=== PATIENT | female | born 1970 ===

== ENCOUNTER 2020-05-22 15:18 | Outpatient (REF) | payer OTHER, SELFPAY | END 2020-05-22 15:19 | disposition home or self-care (01) | LOC: HO.LAB 15:18 | PROVIDERS: PCP Internal Medicine; Visit Provider Internal Medicine | DX: Z20.828 Contact with and (suspected) exposure to other viral communicable diseases (principal) | CPT/HCPCS: C9803; U0003 ==

== ENCOUNTER 2020-09-15 07:36 | Outpatient (REF) | payer OTHER, SELFPAY ==
[2020-09-15 09:30] LABS: Alanine Aminotransferase 22 U/L (0-31); Albumin Level 4.1 g/dL (3.5-5.0); Alkaline Phosphatase 116 U/L (39-117); Anion Gap 13 (12-20); Aspartate Amino Transferase 21 U/L (5-31); Bilirubin Total 0.8 mg/dL (0.0-1.0); Blood Urea Nitrogen 12 mg/dL (9-16); Carbon Dioxide 29 mmol/L (22-29); Chloride 105 mmol/L (96-108); Cholesterol 172 mg/dL; Estimated Glomerular Filt Rate > 60; Glucose Fasting 96 mg/dL (60-99); HDL Cholesterol 39 mg/dL; LDL Cholesterol Calculated 102 mg/dl; Potassium 4.4 mmol/L (3.3-5.1); Sodium 143 mmol/L (135-145); Total Protein 6.9 g/dL (6.5-8.0); Triglycerides 159 mg/dL
== END 2020-09-15 07:37 | disposition home or self-care (01) ==
LOC: HO.LAB 07:36
PROVIDERS: PCP Internal Medicine; Visit Provider Internal Medicine
DX: E78.00 Pure hypercholesterolemia, unspecified (principal)
CPT/HCPCS: 36415; 80053; 80061

== ENCOUNTER 2020-10-03 08:05 | Outpatient (REF) | payer OTHER, SELFPAY ==
[2020-10-06 01:26] LABS: HPV mRNA E6/E7 rflx Not Detected (Not Detected)
== END 2020-10-03 08:06 | disposition home or self-care (01) ==
LOC: HO.LAB 08:05
PROVIDERS: PCP Internal Medicine; Visit Provider Obstetrics & Gynecology
DX: Z01.419 Encounter for gynecological examination (general) (routine) without abnormal findings (principal); Z11.51 Encounter for screening for human papillomavirus (HPV); N83.209 Unspecified ovarian cyst, unspecified side
CPT/HCPCS: 36415; 87624; 88142

== ENCOUNTER 2020-10-05 11:27 | Outpatient (REF) | payer OTHER, SELFPAY ==
--- NOTE | ~2020-10-05 | US_ITS ---
EXAMINATION: ULTRASOUND OF THE PELVIS CLINICAL INFORMATION: Ovarian cyst. COMPARISON: None. TECHNIQUE: Transabdominal and transvaginal pelvic ultrasound. A transvaginal study was performed in addition to the transabdominal study which did not yield an adequate examination of the uterus and ovaries due to superimposed distended gas-filled loops of bowel. FINDINGS: The uterus is normal in size and appearance, measuring 5.2 x 2.9 x 4.4 cm longitudinally, anteroposteriorly and transversely. The endometrial stripe thickness is normal, measuring 0.5 cm in thickness. There is a single uterine fibroid noted at the posterior uterine body myometrium. This is somewhat hypoechoic measuring 0.8 x 0.5 x 0.8 cm, without significant change from prior. The ovaries bilaterally are visualized and appear normal, with the right ovary measuring 1.7 x 1.2 x 1.3 cm and the left ovary measuring 1.6 x 1.1 x 1.3 cm. There are normal arterial and venous spectral waveforms bilaterally. No adnexal mass or free fluid collection seen. US/US pelvic and transvaginal IMPRESSION: Small uterine body fibroid. Otherwise unremarkable pelvic ultrasound..
== END 2020-10-05 11:28 | disposition home or self-care (01) ==
LOC: HO.US 11:27
PROVIDERS: PCP Internal Medicine; Visit Provider Internal Medicine
DX: N83.209 Unspecified ovarian cyst, unspecified side (principal)
CPT/HCPCS: 76830; 76856

== ENCOUNTER → 2020-10-16 12:40 | Outpatient (BNVA) | payer OTHER, SELFPAY | PROVIDERS: PCP Internal Medicine; Visit Provider Obstetrics & Gynecology ==

== ENCOUNTER 2021-06-14 16:13 | Outpatient (REF) | payer OTHER, SELFPAY ==
--- NOTE | ~2021-06-14 | MM_ITS ---
EXAMINATION: MM BREAST SCREENING DIGITAL BREAST TOMOSYNTHESIS, BILATERAL CLINICAL INFORMATION: Screening. Asymptomatic. The lifetime risk of breast cancer based on the Tyrer-Cuzick Model is 18.2%. COMPARISON: Mammography: and studies dating back to 08/07/2013 TECHNIQUE: Digital breast tomosynthesis is performed in both the craniocaudal and mediolateral oblique views along with computer-aided detection (CAD). Synthesized 2D images are generated from the tomosynthesis. FINDINGS: The breasts are heterogeneously dense, which may obscure small masses (ACR BI-RADS breast composition Category c). There is a stable parenchymal pattern within the left breast with no new abnormal dominant mass or suspicious grouping of microcalcifications. About the upper outer aspect of the right breast, there is a circumscribed density measuring approximately 6 x 3 mm in size with increasing number of calcifications present. This may represent a calcifying fibroadenoma. Spot magnification films are recommended in craniocaudal and 90 degree mediolateral views for better evaluation. MM/MM tomosynthesis screening BI IMPRESSION: Right breast density with calcifications for further evaluation with spot magnification views, right breast, in craniocaudal and 90 degree mediolateral views. ASSESSMENT: BI-RADS 0: Incomplete - Need Additional Imaging Evaluation RECOMMENDATION: 1. Additional views of the right breast 2. Targeted ultrasound if warranted after review of the additional views. 3. Radiology department staff will contact the patient for additional imaging.
== END 2021-06-14 16:14 | disposition home or self-care (01) ==
LOC: HO.MAMMO 16:13
PROVIDERS: Visit Provider Internal Medicine
DX: Z12.31 Encounter for screening mammogram for malignant neoplasm of breast (principal)
CPT/HCPCS: 77063; 77067

== ENCOUNTER 2021-06-28 08:38 | Outpatient (REF) | payer OTHER, SELFPAY ==
--- NOTE | ~2021-06-28 | US_ITS ---
EXAMINATION: US DIAGNOSTIC ULTRASOUND BREAST, RIGHT CLINICAL INFORMATION: Density with calcifications upper outer aspect of the right breast. COMPARISON: Mammography of same day and studies dating back to August 13, 2014. TECHNIQUE: Ultrasound of the breast is performed with real-time duarte scale imaging and color Doppler. FINDINGS: Targeted ultrasound of the right breast did not demonstrate any abnormal cystic or solid masses. No region of abnormal distal sound shadowing is appreciated. Results are discussed with the patient at time of visit. US/US breast RT limited IMPRESSION: Probable benign groupings of calcifications as described for which six-month follow-up right breast mammogram is suggested. ASSESSMENT: BI-RADS 3: Probably Benign RECOMMENDATION: Diagnostic mammography in 6 months.
--- NOTE | ~2021-06-28 | MM_ITS ---
EXAMINATION: MM DIAGNOSTIC DIGITAL BREAST TOMOSYNTHESIS, RIGHT US RIGHT BREAST TARGETED CLINICAL INFORMATION: Density with calcifications. COMPARISON: Mammography: 06/14/2021 and studies dating back to 06/16/2010 TECHNIQUE: Digital breast tomosynthesis is performed. 2D images are generated from the tomosynthesis. The following views are obtained: Spot magnification views of the right breast in craniocaudal and 90 degree mediolateral views. FINDINGS: The breasts are heterogeneously dense, which may obscure small masses (ACR BI-RADS breast composition Category c). Magnification views of the right breast demonstrate the original grouping of calcifications with circumscribed density to have a benign appearance similar to previous studies and likely representing a calcifying fibroadenoma. Posterior to this in the superior aspect of the right breast there is a second faint grouping of calcifications approximately 11 cm from the nipple for which 6 month follow-up magnification views are recommended. Looking back on the prior study of 06/14/2021, there is also question of another grouping of calcifications just inferior to the other grouping approximately 11 cm from the nipple; however, these may be artifactual in nature. Targeted ultrasound of the right breast did not demonstrate any abnormal cystic or solid masses. No region of abnormal distal sound shadowing is appreciated. Results are discussed with the patient at time of visit. MM/MM tomosynthesis added views R IMPRESSION: Probable benign groupings of calcifications as described for which six-month follow-up right breast mammogram is suggested. ASSESSMENT: BI-RADS 3: Probably Benign RECOMMENDATION: Diagnostic mammography in 6 months. This patient's information was entered into a reminder system with a target due date for their next mammogram.
== END 2021-06-28 08:39 | disposition home or self-care (01) ==
LOC: HO.MAMMO 08:38
PROVIDERS: Visit Provider Internal Medicine
DX: R92.2 Inconclusive mammogram (principal); R92.8 Other abnormal and inconclusive findings on diagnostic imaging of breast
CPT/HCPCS: 76642; 77061; 77065

== ENCOUNTER 2021-10-11 07:56 | Outpatient (REF) | payer OTHER, SELFPAY ==
[2021-10-11 09:39] LABS: Alanine Aminotransferase 22 U/L (0-31); Albumin Level 4.2 g/dL (3.5-5.0); Alkaline Phosphatase 113 U/L (39-117); Anion Gap 13 (12-20); Aspartate Amino Transferase 21 U/L (5-31); Blood Urea Nitrogen 10 mg/dL (9-16); Calcium 9.6 mg/dL (8.4-10.2); Carbon Dioxide 28 mmol/L (22-29); Chloride 104 mmol/L (96-108); Cholesterol 144 mg/dL; Estimated Glomerular Filt Rate > 60; Glucose Fasting 95 mg/dL (60-99); HDL Cholesterol 35 mg/dL; LDL Cholesterol Calculated 83 mg/dl; Potassium 4.5 mmol/L (3.3-5.1); Sodium 140 mmol/L (135-145); Total Protein 7.1 g/dL (6.5-8.0); Triglycerides 133 mg/dL
[2021-10-16 14:11] LABS: Vitamin D 25-OH, D2 <4 ng/mL; Vitamin D 25-OH, D3 17 ng/mL; Vitamin D 25-OH, Total 17 ng/mL (30-100)
== END 2021-10-11 07:57 | disposition home or self-care (01) ==
LOC: HO.LAB 07:56
PROVIDERS: PCP Internal Medicine; Visit Provider Internal Medicine
DX: Z00.00 Encounter for general adult medical examination without abnormal findings (principal); E78.5 Hyperlipidemia, unspecified; E55.9 Vitamin D deficiency, unspecified
CPT/HCPCS: 36415; 80053; 80061; 82306

== ENCOUNTER → 2021-12-05 07:54 | Outpatient (BNVA) | payer OTHER, SELFPAY | PROVIDERS: Visit Provider Obstetrics & Gynecology | DX: Z13.89 Encounter for screening for other disorder (principal) ==

== ENCOUNTER 2021-12-27 12:08 | Outpatient (REF) | payer OTHER, SELFPAY ==
--- NOTE | ~2021-12-27 | MM_ITS ---
EXAMINATION: MM DIAGNOSTIC DIGITAL BREAST TOMOSYNTHESIS, RIGHT CLINICAL INFORMATION: Short interval six-month follow-up probable benign calcifications mid and posterior upper outer right breast. Family history breast cancer, mother and 2 aunts. The lifetime risk of breast cancer based on the Tyrer-Cuzick Model is 19%. COMPARISON: Mammography: 06/28/2021, 06/14/2021 (BI-RADS 0) 03/02/2020, 09/22/2018 TECHNIQUE: Digital breast tomosynthesis is performed in both the craniocaudal and mediolateral oblique views along with computer-aided detection (CAD). Synthesized 2D images are generated from the tomosynthesis. Additional magnification right CC and magnification right ML views are obtained. FINDINGS: The breasts are heterogeneously dense, which may obscure small masses (ACR BI-RADS breast composition Category c). Findings fibronodular parenchymal pattern is similar to prior exams. There is no interval mass or architectural abnormality or developing density. Coarse tightly grouped calcifications mid upper outer right breast show no significant change. There are likely related to degenerating fibroadenoma. There are a few scattered punctate calcifications slightly more posteriorly which are also without significant change. Right breast will be reassessed again at time of annual bilateral diagnostic mammography, due in 6 months. Results are provided to the patient at time of visit by the technologist. MM/MM tomosynthesis diagnostic RT IMPRESSION: Probable benign calcifications right breast upper outer quadrant without significant change. ASSESSMENT: BI-RADS 3: Probably Benign RECOMMENDATION: Magnification views right breast at time of annual bilateral diagnostic mammography, due in 6 months. This patient's information was entered into a reminder system with a target due date for their next mammogram.
== END 2021-12-27 12:09 | disposition home or self-care (01) ==
LOC: HO.MAMMO 12:08
PROVIDERS: Visit Provider Internal Medicine
DX: R92.1 Mammographic calcification found on diagnostic imaging of breast (principal)
CPT/HCPCS: 77061; 77065

== ENCOUNTER 2022-07-02 14:20 | Outpatient (REF) | payer OTHER, SELFPAY ==
--- NOTE | ~2022-07-02 | MM_ITS ---
EXAMINATION: MM DIAGNOSTIC DIGITAL BREAST TOMOSYNTHESIS, BILATERAL CLINICAL INFORMATION: Six-month follow-up right breast calcifications. Yearly left breast study. The lifetime risk of breast cancer based on the Tyrer-Cuzick Model is 16.8%. COMPARISON: Mammography: 12/27/2021 and studies dating back to 08/13/2014. TECHNIQUE: Digital breast tomosynthesis is performed in both the craniocaudal and mediolateral oblique views along with computer-aided detection (CAD). Synthesized 2D images are generated from the tomosynthesis. Additional spot magnification views of the right breast in craniocaudal and 90 degree mediolateral views performed. FINDINGS: The breasts are extremely dense, which lowers the sensitivity of mammography (ACR BI-RADS breast composition Category d). There is essentially stability of grouping of calcifications about the upper outer aspect of the right breast. A second grouping of a few calcifications appear similar in the upper outer aspect deeper within the right breast. No new abnormal dominant mass or new more suspicious grouping of calcifications is identified. One-year follow-up study is recommended. Results are provided to the patient at time of visit by the technologist. MM/MM tomosynthesis diagnostic BI IMPRESSION: There are no significant changes from prior study. Recommend 1 year follow-up diagnostic study to include magnification views of the right breast. ASSESSMENT: BI-RADS 3: Probably Benign. RECOMMENDATION: Diagnostic mammography at time of next annual exam, due in 12 months. This patient's information was entered into a reminder system with a target due date for their next mammogram.
== END 2022-07-02 14:21 | disposition home or self-care (01) ==
LOC: HO.MAMMO 14:20
PROVIDERS: PCP Internal Medicine; Visit Provider Internal Medicine
DX: R92.1 Mammographic calcification found on diagnostic imaging of breast (principal)
CPT/HCPCS: 77062; 77066

== ENCOUNTER 2022-08-20 13:19 | Outpatient (REF) | payer OTHER, SELFPAY ==
--- NOTE | ~2022-08-20 | US_ITS ---
EXAMINATION: US DIAGNOSTIC ULTRASOUND BREAST (AXILLA), RIGHT CLINICAL INFORMATION: Small palpable finding noted by patient within past few weeks mid right axilla. No erythema or discharge. COMPARISON: Mammography 07/02/2022. TECHNIQUE: Ultrasound is targeted to the area of clinical concern right axilla using grayscale imaging and color Doppler without and with harmonics. Patient is able to point to the area of concern at time of imaging. FINDINGS: There is no focal suspicious finding. There is no cystic or solid mass or architectural abnormality. No lymphadenopathy. No skin thickening or edema tracking in soft tissue planes. Normal compressibility right axillary vein. Results are discussed with the patient at time of visit. US/US breast RT limited IMPRESSION: -Normal study. ASSESSMENT: BI-RADS 1: Negative RECOMMENDATION: Patient should be managed based on the clinical impression. If clinically indicated, further evaluation may be considered with surgical consult. Decision to proceed with biopsy should be based on clinical grounds and degree of clinical concern.
== END 2022-08-20 13:20 | disposition home or self-care (01) ==
LOC: HO.MAMMO 13:19
PROVIDERS: PCP Internal Medicine; Visit Provider Internal Medicine
DX: N63.31 Unspecified lump in axillary tail of the right breast (principal)
CPT/HCPCS: 76642

== ENCOUNTER → 2022-12-10 08:08 | Outpatient (BNVA) | payer OTHER, SELFPAY | PROVIDERS: PCP Internal Medicine; Visit Provider Obstetrics & Gynecology ==

== ENCOUNTER 2023-04-09 16:41 | Outpatient (AMB) | payer OTHER, SELFPAY ==
[2023-04-09 16:48] VITALS: BP 122/76; BMI 27.8
--- NOTE | 2023-04-09 16:48 | A.OFFPC_ITS ---
Vital Signs 04/09/23 16:48 Height 5 ft 2 in Weight 152 lb BMI 27.8 BP 122/76 Blood Pressure Location Lt brachial Position Sitting Intake Visit Reasons: Annual PE Intake Note: Patient here for a physical exam Assistant Program Manager Required: No Accompanied by: Self / Same As Patient Allergies mold [MOLD] Allergy (Intermediate, Verified 04/09/23 16:56) ITCHING pollen extracts [POLLEN] Allergy (Intermediate, Verified 04/09/23 16:56) ITCHING Sulfa (Sulfonamide Antibiotics) [SULFA (SULFONAMIDE ANTIBIOTICS)] Allergy (Intermediate, Verified 04/09/23 16:56) RASH DUST Allergy (Intermediate, Uncoded 04/09/23 16:56) ITCHING Medication List - Last Reconciled 04/09/23 by Alis Plascencia MD albuterol sulfate 90 mcg/actuation 2 puffs PO Q6H PRN atorvastatin 20 mg PO DAILY 90 days cetirizine 10 mg PO DAILY PRN 30 days cholecalciferol (vitamin D3) 50 mcg PO DAILY 90 days epinephrine 0.3 mg IM Q10M PRN fluticasone propionate 50 mcg/actuation (Flonase Allergy Relief) 1 spray intranasal BID 30 days Tobacco use date assessed: 04/09/23 Dental Screening Dental Screen Date: 04/09/23 Did you have a dental visit in the last 12 months?: No Did you have a dental problem in the last 6 months where you did not have access to dental care?: No Was dental information given to patient?: Patient has dentist HPI HPI Comments History of Present Illness Details This is a 52-year-old female that comes for her physical exam. Last mammogram was June 2022 and was normal. Last Pap smear was September 2020 and was normal with HPV negative. Denies any chest pain or shortness of breath. Declines colonoscopy because as per [facility] they do not cover colonoscopy and she has abated 100 dollars out of pocket. [facility] Medical History Hypovitaminosis D Physical exam Onychomycosis Ovarian cyst Seasonal allergic rhinitis due to pollen Pure hypercholesterolemia Surgical History No history of previous surgery Family History Father Diabetes Mother Breast cancer Social History Housing: House Alcohol intake: never Patient Tobacco Use Status: Never used Tobacco e-Cigarette/Vaping Use: Never Used Second Hand Smoke Exposure: No service: No Current occupational status: employed Current occupational exposures/hazards: No Sexual orientation: Straight/Heterosexual Gender identity: Female Cognitive needs: No Hearing needs: No Vision needs: Yes Female Reproductive History Menstrual Age of Menarche: 11 Questionnaire PHQ-9 Over the last 2 weeks, how often have you been bothered by any of the following problems? 1. Little interest or pleasure in doing things: not at all 2. Feeling down, depressed, or hopeless: not at all 3. Trouble falling or staying asleep, or sleeping too much: not at all 4. Feeling tired or having little energy: not at all 5. Poor appetite or overeating: not at all 6. Feeling bad about yourself - or that you are a failure or have let yourself or your family down: not at all 7. Trouble concentrating on things, such as reading the newspaper or watching television: not at all 8. Moving or speaking so slowly that other people could have noticed. Or the opposite - being so fidgety or restless that you have been moving around a lot more than usual: not at all 9. Thoughts that you would be better off or of hurting yourself in some way: not at all Total score: 0 Depression Screening Interpretation: Negative Depression Screening Done: Yes 85597 - PHQ-9 Billing: Yes Source: Developed by Drs. Wolf Mai, Jessica Turner, Zeus Pratt and colleagues, with an educational wojciech from [employer]. Thrive Questionnaire Date Thrive assessed: 04/09/23 I am a: Patient What is your living situation today?: I have a steady place to live Within the past 12 months, did the food you bought not last and you didn't have the money to get more?: Never true Within the past 12 months, did you worry whether your food would run out before you got money to buy more?: Never true Do you have trouble paying for medicines?: No Do you have trouble getting transportation to medical appointments?: No Do you have trouble paying your heating and electricity bill?: No Do you have trouble taking care of your child, family member or friend?: No Do you have trouble with day-to-day activities such as bathing, preparing meals, shopping, managing finances, etc.?: No Are you currently unemployed and looking for a job?: No Are you interested in more education?: No Please select the resources that you would like help with: None Currently or been in a relationship where the following occur: no concerns re ported AUDIT C Alcohol Use Questionnaire (AUDIT-C) 1. How often do you have a drink containing alcohol?: Never Total Score: 0 Score Reviewed/Action Taken: No ALETHA-7 AMB Questionnaire ALETHA-7 Date ALETHA - 7 assessed: 04/09/23 Feeling nervous, anxious, or on edge: 0 = Not at all Not being able to stop or control worryin = Not at all Worrying too much about different things: 0 = Not at all Trouble relaxin = Not at all Being so restless that it is hard to sit still: 0 = Not at all Becoming easily annoyed or irritable: 0 = Not at all Feeling afraid as if something awful might happen: 0 = Not at all Total ALETHA-7 score (0-4 normal; 5-9 mild; 10-14 moderate; 15-21 severe): 0 Source: Developed by Drs. Wolf Mai, Jessica Turner, Zeus Pratt and colleagues, with an educational wojciech from [employer]. ALETHA-7 Assessment Billing ALETHA-7 Assessment Tool: ALETHA-7 Assessment 91533 Review of Systems Const All systems reviewed & are unremarkable except as noted in HPI and below Eyes Reports no additional complaints, Denies change in vision and Denies other visual disturbances Card Denies chest pain at rest, Denies chest pain with activity, Denies edema, Denies irregular heart rhythm, Denies claudication, Denies dyspnea, Denies dyspnea on exertion, Denies orthopnea, Denies paroxysmal nocturnal dyspnea and Denies slow heart rate Resp Denies cough, Denies dyspnea and Denies dyspnea on exertion GI Denies abdominal pain, Denies change in bowel habits, Denies excessive flatus, Denies nausea and Denies vomiting Denies urinary incontinence, Denies urinary hesitancy and Denies urinary urgency Musc Denies abnormal gait, Denies atrophy, Denies deformity and Denies limited range of motion Skin/Breast Denies bleeding lesions, Denies changing lesions and Denies rash Neuro Denies abnormal gait and Denies lack of coordination Physical exam (Primary Care) Vital Signs: Last Vital Signs BP 122/76 04/09/23 16:48 BMI result Body Mass Index 27.8 Tobacco/Smoking Status: Tobacco use Status Tobacco use date assessed 04/09/23 04/09/23 16:53 Patient Tobacco Use Status Never used Tobacco 04/09/23 16:53 e-Cigarette/Vaping Use Never Used 04/09/23 16:53 PHQ-9: PHQ-9 Score PHQ-9: Total score 0 04/09/23 16:53 Depression Screening Interpretation: Negative Thrive Assessment: Date of Thrive Assessment Date Thrive assessed 04/09/23 04/09/23 16:53 Currently or been in a relationship where the following occur: no concerns reported Const Orientation/consciousness: patient oriented x3 HENMT Head: Yes normal to inspection, Yes normocephalic and Yes atraumatic Ears: external ears normal Eyes General: appearance normal, both eyes and all related structures Eyelids: Yes eyelids normal Conjunctivae: conjunctivae normal Neck Neck: Yes normal visual inspection and Yes supple Resp Effort & Inspection: normal respiratory effort Auscultation: clear to auscultation bilaterally Cardio Jugular venous distension: no JVD Rate: regular rate Rhythm: regular rhythm Heart sounds: S1 normal heart sound present and S2 normal heart sound present GI Inspection: Yes normal to inspection Palpation (GI): Soft to palpation and nontender Auscultation: normal bowel sounds Skin General skin exam: no rashes or lesions noted Neuro General: patient oriented x3 and no focal motor deficits Extrem General: Yes full ROM Psych Appearance: grossly normal Office Procedures Flu Questionnaire Does the patient have a severe egg allergy?: No Immunizations flu vacc [id number] 6mos up(PF) 60 mcg(15 mcgx4)/0.5 mL IM syringe Performing Provider: Alis Plascencia MD [facility] Documented (not given) by: LIAM Cha on 04/09/23 16:55 Reason Not Given: Patient Refused Assessment and Plan Assessment & Plan (1) Physical exam: Code(s): Z00.00 - Encounter for general adult medical examination without abnormal findings Plan: Repeat in a year. Orders: Orders Influenza [id number] Immunization Today Z23 - Encounter for immunization Vitamin D 25-OH Total Today E55.9 - Vitamin D deficiency, unspecified Lipid Panel Today E78.5 - Hyperlipidemia, unspecified, Z00.00 - Encounter for general adult medical examination without abnormal findings Comprehensive [place]. Panel Fast Today Z00.00 - Encounter for general adult medical examination without abnormal findings Coding Level of Care Code Est Pt Prev Care 40-64y(80667) Diagnoses Physical exam Z00.00 Additional Codes ALETHA-7 Assessment Billing - ALETHA-7 Assessment Tool: ALETHA-7 Assessment 22595 ([id number]) Time Spent (min) 31
== END 2023-04-09 17:05 | disposition home or self-care (01) ==
PROVIDERS: PCP Internal Medicine; Visit Provider Internal Medicine
DX: Z00.00 Encounter for general adult medical examination without abnormal findings (principal)
CPT/HCPCS: 99396

== ENCOUNTER 2023-12-16 08:28 | Outpatient (AMB) | payer OTHER, SELFPAY ==
--- NOTE | 2023-12-16 08:33 | MHC.OFFVIS ---
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 Intake Note: no concerns [employer] Crewmember Required: No Information Interpreted: non-clinical & clinical Automatic Data Processing Planner: Automatic Data Processing Planner Present (Rosalva Leonardo LIAM) Accompanied by: Self / Same As Patient Allergies mold [MOLD] Allergy (Intermediate, Verified 12/16/23 08:36) ITCHING pollen extracts [POLLEN] Allergy (Intermediate, Verified 12/16/23 08:36) ITCHING Sulfa (Sulfonamide Antibiotics) [SULFA (SULFONAMIDE ANTIBIOTICS)] Allergy (Intermediate, Verified 12/16/23 08:36) RASH DUST Allergy (Intermediate, Uncoded 12/16/23 08:36) ITCHING Post menopausal: No HPI Comments Details: Presenting for annual exam. No complaints. Last Pap/HPV was negative in 09/24 Last Mammogram was done at [facility] in 06/28 was BI-RADS 2 No previous screening Colonoscopy PFSH Medical History Hypovitaminosis D Physical exam Onychomycosis Ovarian cyst Seasonal allergic rhinitis due to pollen Pure hypercholesterolemia Surgical History No history of previous surgery Family History Father Diabetes Mother Breast cancer Social History Housing: House Alcohol intake: never Patient Tobacco Use Status: Never used Tobacco e-Cigarette/Vaping Use: Never Used Second Hand Smoke Exposure: No service: No Current occupational status: employed Current occupational exposures/hazards: No Sexual orientation: Straight/Heterosexual Gender identity: Female Cognitive needs: No Hearing needs: No Vision needs: Yes Female Reproductive History Menstrual Age of Menarche: 11 Menopause type: natural Total pregnancies: 1 Full term: 1 Number of Living Children: 1 Date of last pap smear: 10/04/20 Date of Mammogram: 07/03/23 Review of Systems Const All systems reviewed & are unremarkable except as noted in HPI and below Card Reports as per HPI Resp Reports as per HPI GI Reports as per HPI and Reports no additional complaints Reports as per HPI Physical Exam Vital Signs: Last Vital Signs BP 118/70 12/16/23 08:35 BMI result Body Mass Index 27.4 Const General: cooperative, healthy appearing and comfortable Chest Chest palpation & inspection: normal inspection of the chest and normal palpation of entire chest wall Breast/axilla inspection: normal inspection of the breasts and normal inspection of the axillae Breast/axilla palpation: normal palpation of the breasts, normal palpation of the axillae and no axillary lymphadenopathy Resp Effort & Inspection: normal respiratory effort Auscultation: clear to auscultation bilaterally Percussion: percussion normal Cardio Palpation: normal PMI Rate: regular rate Rhythm: regular rhythm Heart sounds: no murmurs and no rubs Peripheral pulses: Peripheral pulses 2+ throughout GI Inspection: Yes normal to inspection Palpation (GI): Soft to palpation, nontender, no guarding, not rigid and No hepatosplenomegaly present Percussion: Yes normal to percussion Auscultation: normal bowel sounds Rectal Exam - Female: deferred General: Yes bladder normal to palpation External Female Exam: No lesion Speculum Exam - Vagina: normal appearance of the vagina, normal palpation, normal vaginal discharge and not erythematous Speculum Exam - Cervix: normal appearance of the cervix and normal palpation Bimanual exam- vagina & uterus: normal bimanual exam, normal palpation, uterine size normal, bladder normal to palpation, consistency normal and normal palpation Bimanual Exam- Adnexa, other: normal adnexae, no masses and no tenderness Assessment & Plan Assessment & Plan (1) Well woman exam: Code(s): Z01.419 - Encounter for gynecological examination (general) (routine) without abnormal findings Category: Medical Plan: Co testing not indicated this year. Counseled the patient about the recommended dietary allowance of 1200 mg of Calcium & 600 IU of vitamin D. Instructions given the patient to schedule next screening Mammogram in 06/29. The patient was a for the referral to GI for screening colonoscopy , the patient would like to check with her insurance and will get back to me when she is ready, understands benefits of call screening colonoscopy to identify early colon cancer and its implications. The patient was instructed to perform monthly self-breast exams and schedule annual exam in a year. All questions answered and the patient verbalized understanding. Coding Level of Care Code Est Pt Prev Care 40-64y(33189) Diagnoses Well woman exam Z01.419
[2023-12-16 08:35] VITALS: BP 118/70; BMI 27.4
== END 2023-12-16 08:50 | disposition home or self-care (01) ==
PROVIDERS: PCP Internal Medicine; Visit Provider Obstetrics & Gynecology
DX: Z01.419 Encounter for gynecological examination (general) (routine) without abnormal findings (principal)
CPT/HCPCS: 99396

== ENCOUNTER → 2023-12-16 08:28 | Outpatient (BNVA) | payer OTHER, SELFPAY | PROVIDERS: PCP Internal Medicine; Visit Provider Obstetrics & Gynecology ==

== ENCOUNTER 2024-04-13 17:21 | Outpatient (AMB) | payer OTHER, SELFPAY ==
[2024-04-13 17:26] VITALS: BP 120/78; BMI 27.6
--- NOTE | 2024-04-13 17:26 | MHC.PC.OV ---
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 Required: No Accompanied by: Self / Same As Patient Allergies mold [MOLD] Allergy (Intermediate, Verified 04/13/24 17:39) ITCHING pollen extracts [POLLEN] Allergy (Intermediate, Verified 04/13/24 17:39) ITCHING Sulfa (Sulfonamide Antibiotics) [SULFA (SULFONAMIDE ANTIBIOTICS)] Allergy (Intermediate, Verified 04/13/24 17:39) RASH DUST Allergy (Intermediate, Uncoded 04/13/24 17:39) ITCHING Medication List - Last Reconciled 04/13/24 by Alis Plascencia MD albuterol sulfate 90 mcg/actuation 2 puffs PO Q6H PRN atorvastatin 20 mg PO DAILY 90 days cetirizine 10 mg PO DAILY PRN 30 days cholecalciferol (vitamin D3) 50 mcg PO DAILY 90 days epinephrine 0.3 mg (0.3 mL) IM Q10M PRN 30 days fluticasone propionate 50 mcg/actuation (Flonase Allergy Relief) 1 spray intranasal BID 30 days Tobacco use date assessed: 04/13/24 Dental Screening Dental Screen Date: 04/13/24 Did you have a dental visit in the last 12 months?: Yes Did you have a dental problem in the last 6 months where you did not have access to dental care?: No Was dental information given to patient?: Patient has dentist HPI HPI Comments History of Present Illness Details This is a 53-year-old female that comes for her physical exam. Mammogram and Pap smear are up-to-date. She declines having a colonoscopy for now because she has to pay 700 dollars out of pocket. She does not want to do Cologuard or fit test. No chest pain or shortness on breath. [facility] Medical History Hypovitaminosis D Physical exam Onychomycosis Ovarian cyst Seasonal allergic rhinitis due to pollen Pure hypercholesterolemia Surgical History No history of previous surgery Family History Father Diabetes Mother Breast cancer Social History Housing: House Alcohol intake: never Patient Tobacco Use Status: Never used Tobacco e-Cigarette/Vaping Use: Never Used Second Hand Smoke Exposure: No service: No Current occupational status: employed Current occupational exposures/hazards: No Sexual orientation: Straight/Heterosexual Gender identity: Female Cognitive needs: No Hearing needs: No Vision needs: Yes Female Reproductive History Menstrual Age of Menarche: 11 Questionnaire PHQ-9 Over the last 2 weeks, how often have you been bothered by any of the following problems? 1. Little interest or pleasure in doing things: not at all 2. Feeling down, depressed, or hopeless: not at all 3. Trouble falling or staying asleep, or sleeping too much: several days 4. Feeling tired or having little energy: not at all 5. Poor appetite or overeating: not at all 6. Feeling bad about yourself - or that you are a failure or have let yourself or your family down: not at all 7. Trouble concentrating on things, such as reading the newspaper or watching television: not at all 8. Moving or speaking so slowly that other people could have noticed. Or the opposite - being so fidgety or restless that you have been moving around a lot more than usual: not at all 9. Thoughts that you would be better off or of hurting yourself in some way: not at all Total score: 1 Depression Screening Interpretation: Negative Depression Screening Done: Yes [id number] - PHQ-9 Billing: Yes Source: Developed by Drs. Wolf Mai, Jessica Turner, Zeus Pratt and colleagues, with an educational wojciech from [employer]. Thrive Questionnaire Date Thrive assessed: 04/13/24 I am a: Patient What is your living situation today?: I have a steady place to live Within the past 12 months, did the food you bought not last and you didn't have the money to get more?: I choose not to answer this question Within the past 12 months, did you worry whether your food would run out before you got money to buy more?: I choose not to answer this question Do you have trouble paying for medicines?: No Do you have trouble getting transportation to medical appointments?: No Do you have trouble paying your heating and electricity bill?: No Do you have trouble taking care of your child, family member or friend?: No Do you have trouble with day-to-day activities such as bathing, preparing meals, shopping, managing finances, etc.?: No Are you currently unemployed and looking for a job?: No Are you interested in more education?: No Please select the resources that you would like help with: None Currently or been in a relationship where the following occur: I choose not to answer THRIVE Score: 0 AUDIT C Alcohol Use Questionnaire (AUDIT-C) 1. How often do you have a drink containing alcohol?: Never Total Score: 0 Score Reviewed/Action Taken: No ALETHA-7 AMB Questionnaire ALETHA-7 Date ALETHA - 7 assessed: 04/13/24 Feeling nervous, anxious, or on edge: 0 = Not at all Not being able to stop or control worryin = Not at all Worrying too much about different things: 0 = Not at all Trouble relaxin = Not at all Being so restless that it is hard to sit still: 0 = Not at all Becoming easily annoyed or irritable: 0 = Not at all Feeling afraid as if something awful might happen: 0 = Not at all Total ALETHA-7 score (0-4 normal; 5-9 mild; 10-14 moderate; 15-21 severe): 0 Source: Developed by Drs. Wolf Mai, Jessica Turner, Zeus Pratt and colleagues, with an educational wojciech from [employer]. ALETHA-7 Assessment Billing ALETHA-7 Assessment Tool: ALETHA-7 Assessment 07185 Review of Systems Const All systems reviewed & are unremarkable except as noted in HPI and below Card Denies chest pain at rest, Denies chest pain with activity, Denies edema, Denies irregular heart rhythm, Denies claudication, Denies dyspnea, Denies dyspnea on exertion, Denies orthopnea, Denies paroxysmal nocturnal dyspnea and Denies slow heart rate Resp Denies cough, Denies dyspnea and Denies dyspnea on exertion GI Denies abdominal pain, Denies change in bowel habits, Denies excessive flatus, Denies nausea and Denies vomiting Denies urinary incontinence, Denies urinary hesitancy and Denies urinary urgency Neuro Denies behavioral changes and Denies lack of coordination Psych Denies behavioral changes Physical exam (Primary Care) Vital Signs: Last Vital Signs BP 120/78 04/13/24 17:26 BMI result Body Mass Index 27.6 Tobacco/Smoking Status: Tobacco use Status Tobacco use date assessed 04/13/24 04/13/24 17:34 Patient Tobacco Use Status Never used Tobacco 04/13/24 17:34 e-Cigarette/Vaping Use Never Used 04/13/24 17:34 PHQ-9: PHQ-9 Score PHQ-9: Total score 1 04/13/24 17:43 Depression Screening Interpretation: Negative Thrive Assessment: Date of Thrive Assessment Date Thrive assessed 04/13/24 04/13/24 17:34 Currently or been in a relationship where the following occur: I choose not to answer HENVA Head: Yes normal to inspection, Yes normocephalic and Yes atraumatic Ears: external ears normal Eyes General: appearance normal, both eyes and all related structures Eyelids: Yes eyelids normal Conjunctivae: conjunctivae normal Neck Neck: Yes normal visual inspection and Yes supple Resp Effort & Inspection: normal respiratory effort Auscultation: clear to auscultation bilaterally Cardio Jugular venous distension: no JVD Rate: regular rate Rhythm: regular rhythm Heart sounds: S1 normal heart sound present and S2 normal heart sound present GI Inspection: Yes normal to inspection Palpation (GI): Soft to palpation and nontender Auscultation: normal bowel sounds Skin General skin exam: no rashes or lesions noted Neuro General: no focal motor deficits Extrem General: Yes full ROM Psych Appearance: grossly normal Office Procedures Flu Questionnaire Does the patient have a severe egg allergy?: No Immunizations Fluarix Triv [id number] (PF) 45 mcg (15 mcg x 3)/0.5 mL IM syringe Performing Provider: Alis Plascencia MD [facility] Documented (not given) by: LIAM Cha on 04/13/24 17:37 Reason Not Given: Patient Refused Coding Level of Care Code Est Pt Prev Care 40-64y(12405) Diagnoses Physical exam Z00.00 Additional Codes ALETHA-7 Assessment Billing - ALETHA-7 Assessment Tool: ALETHA-7 Assessment 88207 ([id number]) Time Spent (min) 30 Assessment & Plan Assessment & Plan (1) Physical exam: Code(s): Z00.00 - Encounter for general adult medical examination without abnormal findings Category: Medical Plan: Repeat in a year. Orders: Orders Lipid Panel Today E78.5 - Hyperlipidemia, unspecified Vitamin D 25-OH Total Today E55.9 - Vitamin D deficiency, unspecified Influenza [id number] Immunization Today Z23 - Encounter for immunization Comprehensive [place]. Panel Fast Today Z00.00 - Encounter for general adult medical examination without abnormal findings
== END 2024-04-13 17:54 | disposition home or self-care (01) ==
PROVIDERS: PCP Internal Medicine; Visit Provider Internal Medicine
DX: Z23 Encounter for immunization (principal); Z00.00 Encounter for general adult medical examination without abnormal findings

== ENCOUNTER → 2024-04-13 17:21 | Outpatient (BNVA) | payer OTHER, SELFPAY | PROVIDERS: PCP Internal Medicine; Visit Provider Internal Medicine | DX: Z00.01 Encounter for general adult medical examination with abnormal findings (principal); E55.9 Vitamin D deficiency, unspecified; E78.5 Hyperlipidemia, unspecified | CPT/HCPCS: 90471; 96127; 99396 ==

== ENCOUNTER 2024-04-17 08:18 | Outpatient (REF) | payer OTHER, SELFPAY ==
[2024-04-17 09:33] LABS: Alanine Aminotransferase 16 U/L (0-31); Albumin Level 4.1 g/dL (3.5-5.0); Alkaline Phosphatase 107 U/L (39-117); Anion Gap 12 (12-20); Aspartate Amino Transferase 15 U/L (5-31); Bilirubin Total 0.9 mg/dL (0.0-1.0); Blood Urea Nitrogen 8 mg/dL (9-16); Calcium 9.8 mg/dL (8.4-10.2); Carbon Dioxide 29 mmol/L (22-29); Chloride 105 mmol/L (96-108); Cholesterol 151 mg/dL (<200); Estimated Glomerular Filt Rate > 60; Glucose Fasting 104 mg/dL (60-99); HDL Cholesterol 34 mg/dL (>40); LDL Cholesterol Calculated 94 mg/dL (<100); Potassium 3.9 mmol/L (3.3-5.1); Sodium 142 mmol/L (135-145); Total Protein 7.2 g/dL (6.5-8.0); Triglycerides 116 mg/dL (<150)
[2024-04-17 09:42] LABS: Vitamin D 25-OH Total 55.5 ng/mL (>30)
== END 2024-04-17 08:19 | disposition home or self-care (01) ==
LOC: HO.LAB 08:18
PROVIDERS: PCP Internal Medicine; Visit Provider Internal Medicine
DX: Z00.00 Encounter for general adult medical examination without abnormal findings (principal); E78.5 Hyperlipidemia, unspecified; E55.9 Vitamin D deficiency, unspecified
CPT/HCPCS: 36415; 80053; 80061; 82306

== ENCOUNTER 2024-04-26 08:46 | Outpatient (AMB) | payer OTHER, SELFPAY ==
--- NOTE | 2024-04-26 08:52 | AM.OFFWIN_ITS ---
Intake Vital Signs 04/26/24 08:53 Height 5 ft 2 in Weight 149 lb BMI 27.2 BP 102/70 Blood Pressure Location Rt brachial Position Sitting Pulse 64 Pulse Source Pulse Oximeter Temp 98.3 F Temp Source Oral Pulse Oximetry (%) 100 Oxygen Delivery Method Room Air Intake Visit Reasons: EP Nausea, chills, body aches Intake Note: Pt is here today c/o nausea, chills and body aches x4days Patient Tobacco Use Status: Never used Tobacco Allergies mold [MOLD] Allergy (Intermediate, Verified 04/26/24 08:54) ITCHING pollen extracts [POLLEN] Allergy (Intermediate, Verified 04/26/24 08:54) ITCHING Sulfa (Sulfonamide Antibiotics) [SULFA (SULFONAMIDE ANTIBIOTICS)] Allergy (Intermediate, Verified 04/26/24 08:54) RASH DUST Allergy (Intermediate, Uncoded 04/26/24 08:54) ITCHING HPI HPI Comments History of Present Illness Details Patient is a 53-year-old female complaining of 4 days of nausea but no vomiting, body aches and a subjective fever and chills. She says she started this morning with a little bit of a but denies any shortness of breath or wheezing. She did not measure her fever with a thermometer. She tells me her daughter was sick with a similar illness 2 weeks ago but has recovered without taking antibiotics. She states she is able to eat and drink a little bit a time but she is asking for Zofran for her nausea. She has not tested for COVID at home. She has been taking Tylenol for her fevers and states she does feel better when she takes it. She states she does have a history of asthma. [facility] Medical History Hypovitaminosis D Physical exam Onychomycosis Ovarian cyst Seasonal allergic rhinitis due to pollen Pure hypercholesterolemia Surgical History No history of previous surgery Family History Father Diabetes Mother Breast cancer Social History Housing: House Alcohol intake: never Patient Tobacco Use Status: Never used Tobacco e-Cigarette/Vaping Use: Never Used Second Hand Smoke Exposure: No service: No Current occupational status: employed Current occupational exposures/hazards: No Sexual orientation: Straight/Heterosexual Gender identity: Female Cognitive needs: No Hearing needs: No Vision needs: Yes Female Reproductive History Menstrual Age of Menarche: 11 Review of Systems Const All systems reviewed & are unremarkable except as noted in HPI and below Physical Exam Vital Signs: Last Vital Signs Temp 98.3 F 04/26/24 08:53 Pulse 64 04/26/24 08:53 BP 102/70 04/26/24 08:53 Pulse Ox 100 04/26/24 08:53 Oxygen Delivery Method Room Air 04/26/24 08:53 BMI result Body Mass Index 27.2 Const General: cooperative, healthy appearing, comfortable and no acute distress Orientation/consciousness: patient oriented x3 Limitations: no limitations HEENT Head: Yes normal to inspection Ears: hearing grossly normal bilaterally, external ears normal and TM's normal bilaterally General nose exam: Normal external nose present, Normal nares present and No nasal discharge present Face and sinus: Yes normal facial exam and Yes sinuses nontender Mouth: Normal oral and palatal mucosa present and moist mucous membranes Throat: Yes tonsils normal, Yes uvula midline and Yes posterior oropharynx abnormal (Erythema) Eyes General: appearance normal, both eyes and all related structures Neck Neck: Yes normal visual inspection Resp Effort & Inspection: normal respiratory effort, able to speak in complete sentences, no respiratory distress, not tachypneic, no tripod positioning and no use of accessory muscles Auscultation: clear to auscultation bilaterally Cardio Rate: regular rate Rhythm: regular rhythm Heart sounds: normal S1 and S2 Skin General skin exam: no rashes or lesions noted Neuro General: patient oriented x3 Extrem General: Yes normal to inspection and Yes no clubbing, cyanosis or edema Assessment & Plan Assessment & Plan (1) Viral illness: Code(s): B34.9 - Viral infection, unspecified Plan: VSS, patient well-appearing, lung sounds clear. Likely a viral illness did test for flu COVID RSV. Recommended she continue to take Tylenol when she feels a fever, sent Zofran to pharmacy for her nausea. Orders: Orders SARS-CoV2/FLU/RSV Today J06.9 - Acute upper respiratory infection, unspecified Medications: New 2 ondansetron 4 mg PO Q8H PRN 10 tabs 0RF nausea and vomiting Coding Level of Care Code Est Pt Level 3 (09114) Diagnoses Viral illness B34.9
[2024-04-26 08:53] VITALS: BP 102/70; PULSE 64; TEMP 36.8; O2SAT 100; BMI 27.2
== END 2024-04-26 09:14 | disposition home or self-care (01) ==
PROVIDERS: PCP Internal Medicine; Visit Provider Physician Assistant
DX: B34.9 Viral infection, unspecified (principal)

== ENCOUNTER 2024-04-26 08:46 | Outpatient (REF) | payer OTHER, SELFPAY ==
[2024-04-26 12:18] LABS: Influenza A PCR NEGATIVE (Negative); Influenza B PCR NEGATIVE (Negative); Resp Syncy Virus RNA Qual PCR NEGATIVE (Negative); SARS COV2 PCR INHOUSE NEGATIVE (Negative)
== END 2024-04-26 08:47 | disposition home or self-care (01) ==
LOC: HO.LAB 08:46
PROVIDERS: Physician Assistant; PCP Internal Medicine
DX: J06.9 Acute upper respiratory infection, unspecified (principal); B34.9 Viral infection, unspecified
CPT/HCPCS: 0241U; 99212

== ENCOUNTER 2024-05-24 08:14 | Outpatient (AMB) | payer OTHER, SELFPAY ==
[2024-05-24 08:15] VITALS: BP 118/72; PULSE 81; TEMP 36.5; O2SAT 95; BMI 27.8
--- NOTE | 2024-05-24 08:15 | AM.OFFWIN_ITS ---
Intake Vital Signs 05/24/24 08:15 Height 5 ft 2 in Weight 152 lb BMI 27.8 BP 118/72 Blood Pressure Location Lt brachial Position Sitting Pulse 81 Pulse Source Pulse Oximeter Temp 97.7 F Temp Source Temporal Artery Scan Pulse Oximetry (%) 95 Oxygen Delivery Method Room Air Intake Visit Reasons: EP thrush in the mouth Intake Note: Kady is a 53 year old female who presents to the office today for thrush on her tongue. Pt states it started this morning. Pt states her mouth feels sour. Patient Tobacco Use Status: Never used Tobacco Allergies mold [MOLD] Allergy (Intermediate, Verified 05/24/24 08:18) ITCHING pollen extracts [POLLEN] Allergy (Intermediate, Verified 05/24/24 08:18) ITCHING Sulfa (Sulfonamide Antibiotics) [SULFA (SULFONAMIDE ANTIBIOTICS)] Allergy (Intermediate, Verified 05/24/24 08:18) RASH DUST Allergy (Intermediate, Uncoded 05/24/24 08:18) ITCHING HPI HPI Comments History of Present Illness Details Patient is a 53-year-old female complaining of white stuff on her tongue since this morning. She tells me that she did not do anything different overnight except for use an inhaler, she shows me her albuterol inhaler, she denies having a steroid inhaler at home. She denies a history of diabetes but did say she took some antibiotics recently for a tooth infection. [facility] Medical History Hypovitaminosis D Physical exam Onychomycosis Ovarian cyst Seasonal allergic rhinitis due to pollen Pure hypercholesterolemia Surgical History No history of previous surgery Family History Father Diabetes Mother Breast cancer Social History Housing: House Alcohol intake: never Patient Tobacco Use Status: Never used Tobacco e-Cigarette/Vaping Use: Never Used Second Hand Smoke Exposure: No service: No Current occupational status: employed Current occupational exposures/hazards: No Sexual orientation: Straight/Heterosexual Gender identity: Female Cognitive needs: No Hearing needs: No Vision needs: Yes Female Reproductive History Menstrual Age of Menarche: 11 Review of Systems Const All systems reviewed & are unremarkable except as noted in HPI and below Physical Exam Vital Signs: Last Vital Signs Temp 97.7 F 05/24/24 08:15 Pulse 81 05/24/24 08:15 BP 118/72 05/24/24 08:15 Pulse Ox 95 05/24/24 08:15 Oxygen Delivery Method Room Air 05/24/24 08:15 BMI result Body Mass Index 27.8 Const General: cooperative, healthy appearing, comfortable, no acute distress and well developed Orientation/consciousness: patient oriented x3 Limitations: no limitations HEENT Head: Yes normal to inspection Ears: hearing grossly normal bilaterally and external ears normal General nose exam: Normal external nose present Face and sinus: Yes normal facial exam Mouth: tongue abnormal with white coating Neck Neck: Yes normal visual inspection and Yes supple Neuro General: patient oriented x3 Assessment & Plan Assessment & Plan (1) Thrush, oral: Code(s): B37.0 - Candidal stomatitis Plan: Likely secondary to recent antibiotic use, I did send her clotrimazole troches to use 5 times a day for 7 days Plan see above Medications: New clotrimazole 10 mg mucous membrane .five times a day 35 tabs 0RF Coding Level of Care Code Est Pt Level 3 (20968) Diagnoses Thrush, oral B37.0
== END 2024-05-24 08:39 | disposition home or self-care (01) ==
PROVIDERS: PCP Internal Medicine; Visit Provider Physician Assistant
DX: B37.0 Candidal stomatitis (principal)

== ENCOUNTER → 2024-05-24 08:14 | Outpatient (BNVA) | payer OTHER, SELFPAY | PROVIDERS: PCP Internal Medicine; Visit Provider Physician Assistant | DX: B37.0 Candidal stomatitis (principal) | CPT/HCPCS: 99212 ==

== ENCOUNTER 2024-09-10 08:21 | Outpatient (AMB) | payer OTHER, SELFPAY ==
--- OUTSIDE RECORDS SUMMARY | 2024-09-10 08:46 | XMS_ITS | Clinical Summary ---
Author Organization [facility] Address [address] [place] [phone] Phone Care Team Providers Care Preflight Mechanic Name Role Phone Alis Plascencia MD Primary Care Provider [phone] Encounters Date Type Department Care Team Description 07/05/2024 7:09 AM EST - 07/05/2024 11:59 PM EST [facility]counter [facility] [address] [phone] Encounter for screening mammogram for breast cancer Discharge Disposition: Home or Self Care from Last 3 Months Family History Medical History Relation Name Comments Breast cancer Mother Breast cancer Mother's Sister 1 Breast cancer Mother's Sister 2 Relation Name Status Comments Mother Mother's Sister 1 Alive Mother's Sister 2 Alive Social History Tobacco Use Types Packs/Day Years Used Date Smoking Tobacco: Never Assessed Comments No Sex and Gender Information Value Date Recorded Sex Assigned at Not on file Legal Sex Female 8:57 PM EST Gender Identity Not on file Sexual Orientation Not on file Obstetrics History Para Term AB IAB SAB Ectopic Multiple Livin g Live Births 1 Last Filed Vital Signs Vital Sign Reading Time Taken Comments Blood Pressure - - Pulse - - Temperature - - Respiratory Rate - - Oxygen Saturation - - Inhaled Oxygen Concentration - - Weight 65.8 kg (145 lb) 07/05/2024 7:18 AM EST Height 160 cm (5' 3 ) 07/05/2024 7:18 AM EST Body Mass Index 25.69 07/05/2024 7:18 AM EST Plan of Treatment Health Maintenance Due Date Last Done Comments Hepatitis B Vaccines (1 of 3 - 19+ 3-dose series) 1987 Cervical Cancer Screening: Pap Smear 1989 Pneumococcal Vaccine: 50+ Years (1 of 1 - PCV) 2018 Colorectal Cancer Screening: Colonoscopy 08/01/2023 Depression Screening 08/01/2023 HIV Screening 08/01/2023 Hepatitis C Screening 08/01/2023 Social Influencers of Health Screening 08/01/2023 COVID-19 Vaccine ( season) 2024 05/02/2023, 06/07/2021, 11/03/2020, Additional history exists Influenza Vaccine (#1) 2024 05/02/2023 Breast Cancer Screening 07/05/2026 07/05/2024, 07/10 DTaP,Tdap,and Td Vaccines (2 - Td or Tdap) 09/25/2026 09/25/2016 Zoster Vaccines Completed 02/08/2022, 11/23/2021 HIB Vaccines Aged Out No longer eligi ble based on patient's age to complete this topic HPV Vaccines Aged Out No longer eligi ble based on patient's age to complete this topic Hepatitis A Vaccines Aged Out No long er eligible based on patient's age to complete this topic IPV Vaccines Aged Out No longer eligi ble based on patient's age to complete this topic MMR Vaccines Aged Out No longer eligi ble based on patient's age to complete this topic Meningococcal ACWY Vaccine Aged Out N o longer eligible based on patient's age to complete this topic Meningococcal B Vacine Aged Out No lo nger eligible based on patient's age to complete this topic Pneumococcal Vaccine: Pediatrics (0 to 5 Years) and At-Risk Patients (6 to 64 Years) Aged Out No longer eligible based on patient's age to complete this topic RSV Immunization Patients Under 20 months Aged Out No longer eligible based on patient's age to complete this topic Varicella Vaccines Aged Out No longer eligible based on patient's age to complete this topic Procedures Procedure Name Priority Date/Time Associated Diagnosis Comments MG MAMMO DIGITAL SCREENING W MELANIE BILAT Routine 07/05/2024 7:29 AM EST Encounter for screening mammogram for breast cancer from Last 3 Months Results * MG Mammo Digital Screening w Melanie bilat (07/05/2024 7:29 AM EST) Anatomical Region Laterality Modality Breast Bilateral Mammography 07/05/2024 8:53 AM EST Impressions 07/05/2024 9:01 AM EST No mammographic evidence of malignancy. A negative mammogram in the presence of a clinically suspicious palpable abnormality does not preclude the possibility of malignancy or alter the indications for biopsy. PQRI CPT II 3342F Code 20716, 43579 PQRI 225 CPT II 7025F TISSUE DENSITY: The breasts are heterogeneously dense, which may obscure small masses. (BI-RADS category C) IMPRESSION: Benign. BI-RADS CATEGORY: 2 - BENIGN RECOMMENDATION: Screening bilateral mammogram is recommended in 1 year. Mammo Location: [facility], [address] [place] [address] -------- FINAL REPORT -------- Dictated By: Johnny Atkinson Dictated Date: 07/05/2024 08:53 ET Assigned Physician: Johnny Atkinson Reviewed and Electronically Signed By: Johnny Atkinson Signed Date: 07/05/2024 09:01 ET Workstation ID: [id number] Transcribed By: Self Edit Transcribed Date: 07/05/2024 08:53 ET Narrative 07/05/2024 9:01 AM EST CLINICAL: The patient is a 54 years Female presenting for routine screening mammography. COMPARISON: Most recently 06/25/2023 and most remotely 06/28/2021. ?? TECHNIQUE: Full-field digital mammography of the breasts bilaterally consisting of tomosynthesis in MLO and CC projection is performed in the [employer] 2000-D unit. ??Computer aided detection utilizing the iCAD system was utilized. FINDINGS: The breasts are again seen to be composed of a combination of fatty and moderately dense fibroglandular elements. ??Scattered benign calcifications are again seen. ??A 5 mm nodule is again seen in the upper quadrant of the right breast with multiple coarse calcifications, stable in appearance, likely representing a calcifying fibroadenoma. ??There is no suspicious cluster of microcalcifications, mass, or area of architectural distortion. There is no skin thickening or nipple retraction. Procedure Note Johnny Atkinson MD - 07/05/2024 CLINICAL: The patient is a 54 years Female presenting for routinescreening mammography. COMPARISON: Most recently 06/25/2023 and most remotely 06/28/2021. TECHNIQUE: Full-field digital mammography of the breasts bilaterallyconsisting of tomosynthesis in MLO and CC projection is performed in the[employer] Sen[employer]he 2000-D unit. Computer aided detection utilizing the 21st Century On[employer]ystem was utilized. FINDINGS: The breasts are again seen to be composed of a combination offatty and moderately dense fibroglandular elements. Scattered benigncalcifications are again seen. A 5 mm nodule is again seen in the upperquadrant of the right breast with multiple coarse calcifications, stablein appearance, likely representing a calcifying fibroadenoma. There is nosuspicious cluster of microcalcifications, mass, or area of architecturaldistortion. There is no skin thickening or nipple retraction. IMPRESSION: No mammographic evidence of malignancy. A negative mammogram in the presence of a clinically suspicious palpableabnormality does not preclude the possibility of malignancy or alter theindications for biopsy. PQRI CPT II 3342F Code 29883, 57728 PQRI 225 CPT II 7025F TISSUE DENSITY: The breasts are heterogeneously dense, which may obscuresmall masses. (BI-RADS category C) IMPRESSION: Benign. BI-RADS CATEGORY: 2 - BENIGN RECOMMENDATION: Screening bilateral mammogram is recommended in 1 year. Mammo Location: [facility], [address] [place] [id number] -------- FINAL REPORT -------- Dictated By: Johnny Atkinson Dictated Date: 07/05/2024 08:53 ET Assigned Physician: Johnny Atkinson Reviewed and Electronically Signed By: Johnny Atkinson Signed Date: 07/05/2024 09:01 ET Workstation ID: [id number] Transcribed By: Self Edit Transcribed Date: 07/05/2024 08:53 ET us Self Referral Sppl IMG BI PROCEDURES Final Resul t from Last 3 Months Insurance [facility] [place] [address] Care Teams Preflight Mechanic Relationship Specialty Start Date End Date Alis Plascencia MD [address] [place] [address] , [address] [facility] D[facility] BRETT Smith PCP - General Internal Medicine 07/05/24
[2024-09-10 08:51] VITALS: BP 112/74; PULSE 73; TEMP 36.8; O2SAT 97; BMI 27.8
--- NOTE | 2024-09-10 08:51 | MHC.OFFWIV ---
Intake Vital Signs 09/10/24 08:51 Height 5 ft 2 in Weight 152 lb BMI 27.8 BP 112/74 Blood Pressure Location Lt brachial Position Sitting Pulse 73 Pulse Source Pulse Oximeter Temp 98.3 F Temp Source Oral Pulse Oximetry (%) 97 Intake Visit Reasons: EP-headaches, chest pressure, stuffy nose Intake Note: pt is here for headaches, studdy nose, chest congestion Patient Tobacco Use Status: Never used Tobacco Allergies mold [MOLD] Allergy (Intermediate, Verified 09/10/24 08:52) ITCHING pollen extracts [POLLEN] Allergy (Intermediate, Verified 09/10/24 08:52) ITCHING Sulfa (Sulfonamide Antibiotics) [SULFA (SULFONAMIDE ANTIBIOTICS)] Allergy (Intermediate, Verified 09/10/24 08:52) RASH DUST Allergy (Intermediate, Uncoded 05/24/24 08:18) ITCHING Do you need a note to return to daycare/school/sports/work: Yes HPI EP-headaches, chest pressure, stuffy nose HPI Details 54-year-old female patient presents to the walk-in clinic today with a greater than one-week history of headache, nasal congestion, chest congestion and cough. Denies any GI symptoms, however has had some mild nausea. Reports feeling hot/ cold. States her coworkers were sick with similar symptoms. She states that she has been utilizing conservative treatment at home, however now it has been over a week, and now she has significant nasal congestion and facial sinus pressure. COVID test at home was negative. denies any shortness of breath [facility] Medical History Hypovitaminosis D Physical exam Onychomycosis Ovarian cyst Seasonal allergic rhinitis due to pollen Pure hypercholesterolemia Surgical History No history of previous surgery Family History Father Diabetes Mother Breast cancer Social History Housing: House Alcohol intake: never Patient Tobacco Use Status: Never used Tobacco e-Cigarette/Vaping Use: Never Used Second Hand Smoke Exposure: No service: No Current occupational status: employed Current occupational exposures/hazards: No Sexual orientation: Straight/Heterosexual Gender identity: Female Cognitive needs: No Hearing needs: No Vision needs: Yes Female Reproductive History Menstrual Age of Menarche: 11 Review of Systems Const All systems reviewed & are unremarkable except as noted in HPI and below Physical Exam Vital Signs: Last Vital Signs Temp 98.3 F 09/10/24 08:51 Pulse 73 09/10/24 08:51 BP 112/74 09/10/24 08:51 Pulse Ox 97 09/10/24 08:51 BMI result Body Mass Index 27.8 Const General: cooperative and no acute distress Limitations: no limitations HEENT Head: Yes normal to inspection Ears: hearing grossly normal bilaterally General nose exam: Normal external nose present Face and sinus: Yes sinus tenderness (frontal/maxillary) Neck Neck: Yes no lymphadenopathy Resp Effort & Inspection: normal respiratory effort Auscultation: clear to auscultation bilaterally Cardio Rate: regular rate Rhythm: regular rhythm Heart sounds: S1 normal heart sound present and S2 normal heart sound present Skin General skin exam: no rashes or lesions noted Extrem General: Yes capillary refill normal and Yes no clubbing, cyanosis or edema Psych Appearance: grossly normal Mental Status: mental status grossly normal Speech and movement: Normal speech and movement present Assessment & Plan Assessment & Plan (1) Acute sinusitis: Code(s): J01.90 - Acute sinusitis, unspecified Qualifiers: Sinusitis location: maxillary Plan: We discussed that this likely started as a viral illness however she now has acute sinusitis. Will start her on azithromycin. We reviewed indications, use, possible side effects of this. She can continue to utilize [id number] cold / flu medication as needed for symptom management. Declines further viral testing. If she does not improve with treatment /time, she can return to the clinic for further evaluation. She verbalizes understanding and agrees to plan. Medications: New azithromycin For 250 mg dose pack: take 500 mg today (day 1), then 250 mg for 4 days (days 2-5) PO 6 tabs 0RF J01.90 - Acute sinusitis, unspecified Coding Level of Care Code Est Pt Level 4 (83339) Diagnoses Acute sinusitis J01.90 Sinusitis location: maxillary
== END 2024-09-10 09:40 | disposition home or self-care (01) ==
PROVIDERS: PCP Internal Medicine; Visit Provider Nurse Practitioner Family
DX: J01.90 Acute sinusitis, unspecified (principal)

== ENCOUNTER → 2024-09-10 08:21 | Outpatient (BNVA) | payer OTHER, SELFPAY | PROVIDERS: PCP Internal Medicine; Visit Provider Nurse Practitioner Family | DX: J01.90 Acute sinusitis, unspecified (principal) | CPT/HCPCS: 99212 ==

== ENCOUNTER 2024-10-11 16:54 | Outpatient (AMB) | payer OTHER, SELFPAY ==
--- NOTE | 2024-10-11 16:55 | MHC.PC.OV ---
Vital Signs 10/11/24 16:57 Height 5 ft 2 in Weight 155 lb BMI 28.3 BP 112/80 Blood Pressure Location Lt brachial Position Sitting Intake Visit Reasons: 6 month f/u Intake Note: Patient here for a 6 month follow up Aquaculture Director Required: No Accompanied by: Self / Same As Patient Allergies mold [MOLD] Allergy (Intermediate, Verified 10/11/24 17:03) ITCHING pollen extracts [POLLEN] Allergy (Intermediate, Verified 10/11/24 17:03) ITCHING Sulfa (Sulfonamide Antibiotics) [SULFA (SULFONAMIDE ANTIBIOTICS)] Allergy (Intermediate, Verified 10/11/24 17:03) RASH DUST Allergy (Intermediate, Uncoded 10/11/24 17:03) ITCHING Medication List - Last Reconciled 10/11/24 by Alis Plascencia MD albuterol sulfate 90 mcg/actuation 2 puffs PO Q6H PRN atorvastatin 20 mg PO DAILY 90 days cetirizine 10 mg PO DAILY PRN 30 days cholecalciferol (vitamin D3) 50 mcg PO DAILY 90 days epinephrine 0.3 mg (0.3 mL) IM Q10M PRN 30 days fluticasone propionate 50 mcg/actuation (Flonase Allergy Relief) 1 spray intranasal BID 30 days Tobacco use date assessed: 10/11/24 Dental Screening Dental Screen Date: 10/11/24 Did you have a dental visit in the last 12 months?: Yes Did you have a dental problem in the last 6 months where you did not have access to dental care?: No Was dental information given to patient?: Patient has dentist HPI HPI Comments History of Present Illness Details The patient is a 54-year-old female presenting with swelling of the right ankle, which has been a recurrent issue following a previous inversion injury. She has experienced periods of swelling since the initial injury, with occasional relief from anti-inflammatory medication like ibuprofen. The ankle swelling is persistent and affects her mobility, but she denies acute pain or recent trauma contributing to its exacerbation. Additionally, there is a note of previously elevated blood glucose levels approaching prediabetic values, although this has not advanced to diabetes. The patient manages hypercholesterolemia with atorvastatin and takes cetirizine for allergic rhinitis. She has no history of smoking or alcohol use and has a significant family history of cancer. On vitamin-D supplements for her low vitamin-D. [facility] Medical History (Updated 10/11/24 @ 17:09 by Alis Plascencia MD) Hypovitaminosis D Physical exam Onychomycosis Ovarian cyst Seasonal allergic rhinitis due to pollen Pure hypercholesterolemia Surgical History No history of previous surgery Family History Father Diabetes Mother Breast cancer Social History Housing: House Alcohol intake: never Patient Tobacco Use Status: Never used Tobacco e-Cigarette/Vaping Use: Never Used Second Hand Smoke Exposure: No service: No Current occupational status: employed Current occupational exposures/hazards: No Sexual orientation: Straight/Heterosexual Gender identity: Female Cognitive needs: No Hearing needs: No Vision needs: Yes Female Reproductive History Menstrual Age of Menarche: 11 Questionnaire PHQ-9 Over the last 2 weeks, how often have you been bothered by any of the following problems? 1. Little interest or pleasure in doing things: not at all 2. Feeling down, depressed, or hopeless: not at all 3. Trouble falling or staying asleep, or sleeping too much: not at all 4. Feeling tired or having little energy: not at all 5. Poor appetite or overeating: not at all 6. Feeling bad about yourself - or that you are a failure or have let yourself or your family down: not at all 7. Trouble concentrating on things, such as reading the newspaper or watching television: not at all 8. Moving or speaking so slowly that other people could have noticed. Or the opposite - being so fidgety or restless that you have been moving around a lot more than usual: not at all 9. Thoughts that you would be better off or of hurting yourself in some way: not at all Total score: 0 Depression Screening Interpretation: Negative Depression Screening Done: Yes [address]4736 - PHQ-9 Billing: Yes Source: Developed by Drs. Wolf Mai, Jessica Turner, Zeus Pratt and colleagues, with an educational wojciech from [employer]. Thrive Questionnaire Date Thrive assessed: 10/11/24 I am a: Patient What is your living situation today?: I have a steady place to live Within the past 12 months, did the food you bought not last and you didn't have the money to get more?: I choose not to answer this question Within the past 12 months, did you worry whether your food would run out before you got money to buy more?: I choose not to answer this question Do you have trouble paying for medicines?: No Do you have trouble getting transportation to medical appointments?: No Do you have trouble paying your heating and electricity bill?: No Do you have trouble taking care of your child, family member or friend?: No Do you have trouble with day-to-day activities such as bathing, preparing meals, shopping, managing finances, etc.?: No Are you currently unemployed and looking for a job?: No Are you interested in more education?: No Please select the resources that you would like help with: None Currently or been in a relationship where the following occur: I choose not to answer THRIVE Score: 0 AUDIT C Alcohol Use Questionnaire (AUDIT-C) 1. How often do you have a drink containing alcohol?: Never Total Score: 0 Score Reviewed/Action Taken: No ALETHA-7 AMB Questionnaire ALETHA-7 Date ALETHA - 7 assessed: 10/11/24 Feeling nervous, anxious, or on edge: 0 = Not at all Not being able to stop or control worryin = Not at all Worrying too much about different things: 0 = Not at all Trouble relaxin = Not at all Being so restless that it is hard to sit still: 0 = Not at all Becoming easily annoyed or irritable: 0 = Not at all Feeling afraid as if something awful might happen: 0 = Not at all Total ALETHA-7 score (0-4 normal; 5-9 mild; 10-14 moderate; 15-21 severe): 0 Source: Developed by Drs. Wolf Mai, Jessica Turner, Zeus Pratt and colleagues, with an educational wojciech from [employer]. ALETHA-7 Assessment Billing ALETHA-7 Assessment Tool: ALETHA-7 Assessment 45679 Review of Systems Const All systems reviewed & are unremarkable except as noted in HPI and below Card Denies chest pain at rest, Denies chest pain with activity, Denies edema, Denies irregular heart rhythm, Denies claudication, Denies dyspnea, Denies dyspnea on exertion, Denies orthopnea, Denies paroxysmal nocturnal dyspnea and Denies slow heart rate Resp Denies cough, Denies dyspnea and Denies dyspnea on exertion GI Denies abdominal pain, Denies change in bowel habits, Denies excessive flatus, Denies nausea and Denies vomiting Denies urinary incontinence, Denies urinary hesitancy and Denies urinary urgency Musc Denies atrophy, Denies deformity and Denies limited range of motion Skin/Breast Denies bleeding lesions, Denies changing lesions and Denies rash Physical exam (Primary Care) Vital Signs: Last Vital Signs BP 112/80 10/11/24 16:57 BMI result Body Mass Index 28.3 Tobacco/Smoking Status: Tobacco use Status Tobacco use date assessed 10/11/24 10/11/24 17:02 Patient Tobacco Use Status Never used Tobacco 10/11/24 16:57 e-Cigarette/Vaping Use Never Used 10/11/24 16:57 PHQ-9: PHQ-9 Score PHQ-9: Total score 0 10/11/24 17:02 Depression Screening Interpretation: Negative Thrive Assessment: Date of Thrive Assessment Date Thrive assessed 10/11/24 10/11/24 16:57 Currently or been in a relationship where the following occur: I choose not to answer Resp Effort & Inspection: normal respiratory effort Auscultation: clear to auscultation bilaterally Cardio Jugular venous distension: no JVD Rate: regular rate Rhythm: regular rhythm Heart sounds: S1 normal heart sound present and S2 normal heart sound present Extrem General: Yes full ROM Coding Level of Care Code Est Pt Level 4 (00072) Complex EM visit Add On G2211 Diagnoses Pure hypercholesterolemia E78.00 Right foot pain M79.671 Hypovitaminosis D E55.9 Seasonal allergic rhinitis due to pollen J30.1 Additional Codes PHQ-9 - 56177 - PHQ-9 Billing: Yes ([id number]) ALETHA-7 Assessment Billing - ALETHA-7 Assessment Tool: ALETHA-7 Assessment 84673 ([id number]) Time Spent (min) 22 Assessment & Plan Assessment & Plan (1) Pure hypercholesterolemia: Code(s): E78.00 - Pure hypercholesterolemia, unspecified Category: Medical (2) Right foot pain: Code(s): M79.671 - Pain in right foot Category: Medical (3) Hypovitaminosis D: Code(s): E55.9 - Vitamin D deficiency, unspecified Category: Medical (4) Seasonal allergic rhinitis due to pollen: Code(s): J30.1 - Allergic rhinitis due to pollen Category: Medical Plan For ankle swelling, I recommend imaging for further evaluation and the continued use of ibuprofen as needed, given its efficacy in alleviating symptoms. The elevated blood glucose level, with a history close to prediabetes, necessitates repeated monitoring in April. Hypercholesterolemia management will continue with atorvastatin. Additionally, preventive health measures, including a colonoscopy, were discussed and should be scheduled as insurance is now stable. Patient was informed and verbally consented to the use of an ambient scribe for clinic note documentation during this visit. I discussed with the patient the potential causes of her right ankle swelling, highlighting the prior traumatic event. We reviewed the utility of ibuprofen in managing inflammatory symptoms and considered further imaging studies to ascertain any underlying or ongoing tissue changes. Concerning her blood glucose level, we emphasized monitoring and lifestyle modifications to prevent progression to diabetes. The familial cancer history led to a discussion on the importance of screening, including a colonoscopy, and I advised on rescheduling now that insurance issues were resolved. We addressed the management of allergic rhinitis with cetirizine and cholesterol control with atorvastatin, acknowledging the absence of current chest pain or blood pressure issues. Orders: Orders XR foot RT 2V Today M79.671 - Pain in right foot Lipid Panel 6 Months E78.5 - Hyperlipidemia, unspecified Comprehensive [place]. Panel Fast 6 Months E78.00 - Pure hypercholesterolemia, unspecified Vitamin D 25-OH Total 6 Months E55.9 - Vitamin D deficiency, unspecified Referrals Open Access Screening Colonoscopy Referral E78.00 - Pure hypercholesterolemia, unspecified, Z12.12 - Encounter for screening for malignant neoplasm of rectum Medications: Refilled albuterol sulfate 90 mcg/actuation 2 puffs PO Q6H PRN 18 ea 1RF shortness of breath or wheezing E78.00 - Pure hypercholesterolemia, unspecified atorvastatin 20 mg PO DAILY 90 days 90 tabs 3RF E78.00 - Pure hypercholesterolemia, unspecified cetirizine 10 mg PO DAILY 30 days PRN 30 tabs 6RF allergy symptoms E78.00 - Pure hypercholesterolemia, unspecified cholecalciferol (vitamin D3) 50 mcg PO DAILY 90 days 90 caps 3RF E55.9 - Vitamin D deficiency, unspecified fluticasone propionate 50 mcg/actuation (Flonase Allergy Relief) administer into each nostril 1 spray intranasal BID 30 days 16 grams 6RF E78.00 - Pure hypercholesterolemia, unspecified Patient Instructions: - Schedule imaging for the right ankle. - Use ibuprofen as needed for ankle swelling. - Monitor blood glucose and repeat labs in April. - Continue taking atorvastatin for cholesterol management. - Use cetirizine for allergy symptoms. - Schedule a colonoscopy for preventative screening. - Maintain follow-up appointments as discussed. - Seek further medical attention if experiencing new or worsening symptoms.
[2024-10-11 16:57] VITALS: BP 112/80; BMI 28.3
--- OUTSIDE RECORDS SUMMARY | 2024-10-11 18:49 | XMS_ITS | Clinical Summary ---
Author Organization [facility] Address [address] [place] [address] Phone Care Team Providers Care Cloud Solutions Architect Name Role Phone Ails Plascencia MD Primary Care Provider [phone] Family History Medical History Relation Name Comments [...] age to complete this topic Meningococcal B Vaccine Aged Out No l onger eligible based on patient's age to complete [...] for breast cancer from Last 3 Months or Most Recently Relevant to Health Maintenance Results * MG Mammo Digital Screening w [...] for biopsy. PQRI CPT II 3342F Code 12333, 71976 PQRI 225 CPT II 7025F TISSUE DENSITY: The breasts are heterogeneously dense, which may obscure small masses. (BI-RADS category C) IMPRESSION: Benign. BI-RADS CATEGORY: 2 - BENIGN RECOMMENDATION: Screening bilateral mammogram is recommended in 1 year. Mammo Location: [facility], [address] [place] [id number] -------- FINAL REPORT -------- Dictated By: Johnny Atkinson Dictated Date: 07/05/2024 08:53 ET Assigned Physician: Johnny Atkinson Reviewed and Electronically Signed By: Johnny Atkinson Signed Date: 07/05/2024 09:01 ET Workstation ID: [id number] Transcribed By: Self Edit Transcribed Date: 07/05/2024 08:53 ET Narrative 07/05/2024 9:01 AM EST CLINICAL: The patient is a 54 years Female presenting for routine screening mammography. COMPARISON: Most recently 06/25/2023 and most remotely 06/28/2021. ?? TECHNIQUE: Full-field digital mammography of the breasts bilaterally consisting of tomosynthesis in MLO and CC projection is performed in the [employer] 2000-D unit. ??Computer aided detection utilizing the dianboomD system was utilized. FINDINGS: The breasts are [...] MLO and CC projection is performed in the[employer]lock 2000-D unit. Computer aided detection utilizing the iCADsystem was utilized. FINDINGS: The breasts are again [...] for biopsy. PQRI CPT II 3342F Code 48299, 73653 PQRI 225 CPT II 7025F TISSUE DENSITY: The breasts are heterogeneously dense, which may obscuresmall masses. (BI-RADS category C) IMPRESSION: Benign. BI-RADS CATEGORY: 2 - BENIGN RECOMMENDATION: Screening bilateral mammogram is recommended in 1 year. Mammo Location: [facility], [facility], [address] [place] [address] -------- FINAL REPORT -------- Dictated By: Johnny Atkinson Dictated Date: 07/05/2024 08:53 ET Assigned Physician: Johnny Atkinson Reviewed and Electronically Signed By: Johnny Atkinson Signed Date: 07/05/2024 09:01 ET Workstation ID: [id number] Transcribed By: Self Edit Transcribed Date: 07/05/2024 08:53 ET us Self Referral Sppl IMG BI PROCEDURES Final Resul t from Last 3 Months or Most Recently Relevant to Health Maintenance Insurance [facility] Care Teams Cloud Solutions Architect Relationship Specialty Start Date End Date Alis Plascencia MD [address] [facility] [address], [address] [facility] D/B/A: [facility] BRETT Smith PCP - General Internal Medicine 07/05/24
== END 2024-10-11 17:12 | disposition home or self-care (01) ==
LOC: HO.HMCH 16:54
PROVIDERS: PCP Internal Medicine; Visit Provider Internal Medicine
DX: E78.00 Pure hypercholesterolemia, unspecified (principal); M79.671 Pain in right foot; E55.9 Vitamin D deficiency, unspecified; J30.1 Allergic rhinitis due to pollen

== ENCOUNTER → 2024-10-11 16:54 | Outpatient (BNVA) | payer OTHER, SELFPAY | PROVIDERS: PCP Internal Medicine; Visit Provider Internal Medicine | DX: E78.00 Pure hypercholesterolemia, unspecified (principal); M79.671 Pain in right foot; E55.9 Vitamin D deficiency, unspecified; J30.1 Allergic rhinitis due to pollen | CPT/HCPCS: 96127; 99212 ==

== ENCOUNTER 2024-10-15 08:06 | Outpatient (REF) | payer OTHER, SELFPAY ==
--- NOTE | ~2024-10-15 | XR_ITS ---
EXAMINATION: XR FOOT 1-2 VIEWS RIGHT HISTORY: M79.671 - Pain in right foot COMPARISON: Comparison is made with the prior examination dated 03/03/2018. FINDINGS: Three views of the right foot are submitted. Osseous mineralization is normal. There is no fracture or dislocation. The joint spaces are preserved. The soft tissues are unremarkable. XR/XR foot RT 2V IMPRESSION: Unremarkable examination of the right foot. Electronically signed by: Wolf Barrios MD 10/15/2024 08:38 AM EDT
--- OUTSIDE RECORDS SUMMARY | 2024-10-15 08:14 | XMS_ITS | Clinical Summary ---
Author Organization [facility] Address [address] [place] [address] Phone Care Team Providers Care Motor Vehicle Assembler Name Role Phone Alis Plascencia MD Primary Care Provider [phone] Family History Medical History Relation Name Comments [...] for biopsy. PQRI CPT II 3342F Code 74712, 13398 PQRI 225 CPT II 7025F TISSUE DENSITY: The breasts are heterogeneously dense, which may obscure small masses. (BI-RADS category C) IMPRESSION: Benign. BI-RADS CATEGORY: 2 - BENIGN RECOMMENDATION: Screening bilateral mammogram is recommended in 1 year. Mammo Location: [facility], [facility], [address] [place] [address] -------- FINAL REPORT -------- Dictated By: Johnny Atkinson Dictated Date: 07/05/2024 08:53 ET Assigned Physician: Johnny Atkinson Reviewed and Electronically Signed By: Johnny Atkinson Signed Date: 07/05/2024 09:01 ET Workstation ID: [id number] Transcribed By: Self Edit Transcribed Date: 07/05/2024 08:53 ET Narrative 07/05/2024 9:01 AM EST CLINICAL: The patient is a 54 years Female presenting for routine screening mammography. COMPARISON: Most recently 06/25/2023 and most remotely 06/28/2021. ?? TECHNIQUE: Full-field digital mammography of the breasts bilaterally consisting of tomosynthesis in MLO and CC projection is performed in the [employer] 2000-D unit. ??Computer aided detection utilizing the [employer]ori CorporationD system was utilized. FINDINGS: The breasts are [...] MLO and CC projection is performed in the[employer]capse 2000-D unit. Computer aided detection utilizing the [...] for biopsy. PQRI CPT II 3342F Code 58201, 38485 PQRI 225 CPT II 7025F TISSUE DENSITY: The breasts are heterogeneously dense, which may obscuresmall masses. (BI-RADS category C) IMPRESSION: Benign. BI-RADS CATEGORY: 2 - BENIGN RECOMMENDATION: Screening bilateral mammogram is recommended in 1 year. Mammo Location: [facility], [facility], [address] [place] [address] -------- FINAL REPORT -------- Dictated By: Jonhny Atkinson Dictated Date: 07/05/2024 08:53 ET Assigned Physician: Johnny Atkinson Reviewed and Electronically Signed By: Johnny Atkinson Signed Date: 07/05/2024 09:01 ET Workstation ID: [id number] Transcribed By: Self Edit Transcribed Date: 07/05/2024 08:53 ET us Self Referral Sppl IMG BI PROCEDURES Final Resul t from Last 3 Months or Most Recently Relevant to Health Maintenance Insurance [facility] PL[facility] Care Teams Motor Vehicle Assembler Relationship Specialty Start Date End Date Alis Plascencia MD 2 [facility] [address], [address] [facility] D/B/A: [facility] BRETT Smith PCP - General Internal Medicine 07/05/24
== END 2024-10-15 08:07 | disposition home or self-care (01) ==
LOC: HO.XRAY 08:06
PROVIDERS: PCP Internal Medicine; Visit Provider Internal Medicine
DX: M79.671 Pain in right foot (principal)
CPT/HCPCS: 73620

== ENCOUNTER → 2024-10-15 08:09 | Outpatient (BNV) | payer OTHER, SELFPAY | PROVIDERS: PCP Internal Medicine; Visit Provider Radiology Diagnostic Radiology | DX: M79.671 Pain in right foot (principal) | CPT/HCPCS: 73620 ==

== ENCOUNTER 2025-03-03 07:37 | Outpatient (REF) | payer OTHER, SELFPAY | END 2025-03-03 07:38 | disposition home or self-care (01) | LOC: HO.LNP 07:37 | PROVIDERS: PCP Internal Medicine; Visit Provider Obstetrics & Gynecology | DX: Z01.419 Encounter for gynecological examination (general) (routine) without abnormal findings (principal); Z12.11 Encounter for screening for malignant neoplasm of colon | CPT/HCPCS: 87626; 88175; 99396 ==

== ENCOUNTER 2025-03-03 07:37 | Outpatient (AMB) | payer OTHER, SELFPAY ==
--- NOTE | 2025-03-03 07:39 | MHC.OFFVIS ---
Vital Signs 03/03/25 07:45 Height 5 ft 2 in Weight 154 lb BMI 28.2 BP 122/84 Intake Visit Reasons: annual Insurance Verification Rep Required: No Information Interpreted: non-clinical & clinical Patient Services Technician: Patient Services Technician Present (Rosalva WHEELER) Accompanied by: Self / Same As Patient Allergies mold (MOLD) Allergy (Intermediate, Verified 03/03/25 07:46) ITCHING pollen extracts (POLLEN) Allergy (Intermediate, Verified 03/03/25 07:46) ITCHING Sulfa (Sulfonamide Antibiotics) (SULFA (SULFONAMIDE ANTIBIOTICS)) Allergy (Intermediate, Verified 03/03/25 07:46) RASH DUST Allergy (Intermediate, Uncoded 03/03/25 07:46) ITCHING Post menopausal: Yes HPI Comments Details: Presenting for annual exam. No complaints. Last Pap/HPV was negative in 09/24 Last Mammogram was BI-RADS 2 in 06/29 at [place] No previous screening Colonoscopy [facility] Medical History Hypovitaminosis D Physical exam Onychomycosis Ovarian cyst Seasonal allergic rhinitis due to pollen Pure hypercholesterolemia Surgical History No history of previous surgery Family History Father Diabetes Mother Breast cancer Social History Housing: House Alcohol intake: never Patient Tobacco Use Status: Never used Tobacco e-Cigarette/Vaping Use: Never Used Second Hand Smoke Exposure: No service: No Current occupational status: employed Current occupational exposures/hazards: No Sexual orientation: Straight/Heterosexual Gender identity: Female Cognitive needs: No Hearing needs: No Vision needs: Yes Female Reproductive History Menstrual Age of Menarche: 11 Menopause type: natural Total pregnancies: 1 Full term: 1 Number of Living Children: 1 Date of last pap smear: 10/04/20 Date of Mammogram: 07/05/24 Review of Systems Const All systems reviewed & are unremarkable except as noted in HPI and below Card Reports as per HPI Resp Reports as per HPI GI Reports as per HPI and Reports no additional complaints Reports as per HPI Physical Exam Vital Signs: Last Vital Signs BP 122/84 03/03/25 07:45 BMI result Body Mass Index 28.2 Const General: cooperative, healthy appearing and comfortable Chest Chest palpation & inspection: normal inspection of the chest and normal palpation of entire chest wall Breast/axilla inspection: normal inspection of the breasts and normal inspection of the axillae Breast/axilla palpation: normal palpation of the breasts, normal palpation of the axillae and no axillary lymphadenopathy Resp Effort & Inspection: normal respiratory effort Auscultation: clear to auscultation bilaterally Percussion: percussion normal Cardio Palpation: normal PMI Rate: regular rate Rhythm: regular rhythm Heart sounds: no murmurs and no rubs Peripheral pulses: Peripheral pulses 2+ throughout GI Inspection: Yes normal to inspection Palpation (GI): Soft to palpation, nontender, no guarding, not rigid and No hepatosplenomegaly present Percussion: Yes normal to percussion Auscultation: normal bowel sounds Rectal Exam - Female: deferred General: Yes bladder normal to palpation External Female Exam: No lesion Speculum Exam - Vagina: normal appearance of the vagina, normal palpation, normal vaginal discharge and not erythematous Speculum Exam - Cervix: normal appearance of the cervix and normal palpation Bimanual exam- vagina & uterus: normal bimanual exam, normal palpation, uterine size normal, bladder normal to palpation, consistency normal and normal palpation Bimanual Exam- Adnexa, other: normal adnexae, no masses and no tenderness Assessment & Plan Assessment & Plan (1) Well woman exam: Code(s): Z01.419 - Encounter for gynecological examination (general) (routine) without abnormal findings Category: Medical Plan: Co testing done. Counseled the patient about the recommended dietary allowance of 1200 mg of Calcium & 600 IU of vitamin D. Instructions given the patient to schedule next screening Mammogram in 06/30. The patient was referred to GI for screening colonoscopy . The patient was instructed to perform monthly self-breast exams and schedule annual exam in a year. All questions answered and the patient verbalized understanding. Orders: Referrals Gastroenterology Referral Z12.11 - Encounter for screening for malignant neoplasm of colon Coding Level of Care Code Est Pt Prev Care 40-64y(45722) Diagnoses Well woman exam Z01.419
--- OUTSIDE RECORDS SUMMARY | 2025-03-03 07:39 | XMS_ITS | Clinical Summary ---
Author Organization [facility] Address [address] [place] [address] Phone Care Team Providers Care Metal Numerical Control Programmer Name Role Phone Alis Plascencia MD Primary Care Provider Allergies No known active allergies Medications meloxicam (MOBIC) 15 mg tablet Take 1 tablet (15 mg total) by mouth 1 (one) time each day. 30 tablet 02/10/2025 Active Encounters Date Type Department Care Team Description 02/10/2025 8:45 AM EDT Office Visit Orthopedic Surgery [facility] [address] [facility] [address] [place] [phone] Jeovanny Reilly, DPMaverick Sprain of posterior talofibular ligament of right ankle, initial encounter (Primary Dx); Pain in right foot from Last 3 Months Family History Medical [...] 07/05/2024 7:18 AM EST Plan of Treatment Upcoming Encounters Date Type Department Care Team (Late st Contact Info) Description 08/15/2025 8:30 AM EST Office Visit Orthopedic Surgery - [place] [address] [place] [address] [place] [phone] Jeovanny Reilly, DPM [address] [place] [address] Health Maintenance Due Date Last Done Comments Hepatitis B Vaccines (1 of 3 - 19+ 3-dose series) 1987 Cervical Cancer Screening: Pap Smear 1989 Pneumococcal Vaccine: 50+ Years (2 of 2 - PCV) 2018 12/02/2013 Colorectal Cancer Screening: Colonoscopy 08/01/2023 HIV Screening 08/01/2023 Hepatitis C Screening 08/01/2023 Social Influencers of Health Screening 08/01/2023 COVID-19 Vaccine ( season) 2024 05/02/2023, 06/07/2021, 11/03/2020, Additional history exists Depression Screening 07/07/2024 Influenza Vaccine (#1) 2025 , 04/18/2010, 05/15/2007, Additional history exists Breast Cancer Screening 07/05/2026 07/05/2024, 07/10 DTaP,Tdap,and Td Vaccines (3 - Td or Tdap) 09/25/2026 09/25/2016, 04/18/2011 Zoster Vaccines Completed 02/08/2022, 11/23/2021 HIB Vaccines [...] for biopsy. PQRI CPT II 3342F Code 42320, 57573 PQRI 225 CPT II 7025F TISSUE DENSITY: The breasts are heterogeneously dense, which may obscure small masses. (BI-RADS category C) IMPRESSION: Benign. BI-RADS CATEGORY: 2 - BENIGN RECOMMENDATION: Screening bilateral mammogram is recommended in 1 year. Mammo Location: [facility], [facility] for [facility], [address] [place] [address] -------- FINAL REPORT -------- Dictated By: Johnny Atkinson Dictated Date: 07/05/2024 08:53 ET Assigned Physician: Johnny Atkinson Reviewed and Electronically Signed By: Johnny Atkinson Signed Date: 07/05/2024 09:01 ET Workstation ID: [id number] Transcribed By: Self Edit Transcribed Date: 07/05/2024 08:53 ET Narrative 07/05/2024 9:01 AM EST CLINICAL: The patient is a 54 years Female presenting for routine screening mammography. COMPARISON: Most recently 06/25/2023 and most remotely 06/28/2021. TECHNIQUE: Full-field digital mammography of the breasts bilaterally consisting of tomosynthesis in MLO and CC projection is performed in the [employer] 2000-D unit. Computer aided detection utilizing the iCAD system was utilized. FINDINGS: The breasts are again seen to be composed of a combination of fatty and moderately dense fibroglandular elements. Scattered benign calcifications are again seen. 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 There is no suspicious cluster of microcalcifications, mass, [...] MLO and CC projection is performed in the[employer] 2000-D unit. Computer aided detection utilizing the OfficeDropystem was utilized. FINDINGS: The breasts are again [...] for biopsy. PQRI CPT II 3342F Code 69965, 27551 PQRI 225 CPT II 7025F TISSUE DENSITY: The breasts are heterogeneously dense, which may obscuresmall masses. (BI-RADS category C) IMPRESSION: Benign. BI-RADS CATEGORY: 2 - BENIGN RECOMMENDATION: Screening bilateral mammogram is recommended in 1 year. Mammo Location: [facility], [facility], [address] [place] [address] -------- FINAL REPORT -------- Dictated By: Johnny Atkinson Dictated Date: 07/05/2024 08:53 ET Assigned Physician: Johnny Atkinson Reviewed and Electronically Signed By: Johnny Atkinson Signed Date: 07/05/2024 09:01 ET Workstation ID: [id number] Transcribed By: Self Edit Transcribed Date: 07/05/2024 08:53 ET us Self Referral Sppl IMG BI PROCEDURES Final Resul t from Last 3 Months or Most Recently Relevant to Health Maintenance Insurance [place] [address] Care Teams Metal Numerical Control Programmer Relationship Specialty Start Date End Date Alis Plascencia MD [address] [facility] , [address] [facility] Physician Associ D/B/A: [facility] [place], [place] PCP - General Internal Medicine 07/05/24
[2025-03-03 07:45] VITALS: BP 122/84; BMI 28.2
== END 2025-03-03 08:01 | disposition home or self-care (01) ==
LOC: HO.HWS 07:37
PROVIDERS: PCP Internal Medicine; Visit Provider Obstetrics & Gynecology
DX: Z01.419 Encounter for gynecological examination (general) (routine) without abnormal findings (principal)
CPT/HCPCS: 99396; 99459

== ENCOUNTER 2025-06-23 10:39 | Outpatient (AMB) | payer OTHER, SELFPAY ==
[2025-06-23 10:42] VITALS: BP 140/78; PULSE 101; BMI 28.8
--- NOTE | 2025-06-23 10:42 | A.OFFVIS_ITS ---
Vital Signs 06/23/25 10:42 Height 5 ft 2 in Weight 157 lb 6.561 oz BMI 28.8 BP 140/78 H Blood Pressure Location Lt brachial Position Sitting Pulse 101 H Intake Visit Reasons: Bantam Screening Intake Note: New patient in office today for colonoscopy screening. CC: Patient denies having any GI symptoms. Water Control Station Engineer Required: No Allergies mold (MOLD) Allergy (Intermediate, Verified 06/23/25 10:45) ITCHING pollen extracts (POLLEN) Allergy (Intermediate, Verified 06/23/25 10:45) ITCHING Sulfa (Sulfonamide Antibiotics) (SULFA (SULFONAMIDE ANTIBIOTICS)) Allergy (Intermediate, Verified 06/23/25 10:45) RASH DUST Allergy (Intermediate, Uncoded 03/03/25 07:46) ITCHING HPI HPI Bantam Screening: Details: 54-year-old female here for preprocedural meeting to discuss a screening colonoscopy. She is referred by Alis Roque. PMX Allergic rhinitis Asthma High cholesterol * SURGICAL HISTORY Pt denies * ALLERGIES Mold Pollen Sulfa DUST * MENA PRESTIGE LABS: Needs updated labs TODAY'S VISIT 1st colonoscopy: Yes Bowel or upper GI problems: No Cardiac or respiratory problems: Asthma is well controlled Anesthesia or sedation problems: Naive Family history of colon cancer or polyps:No PFSH Medical History Hypovitaminosis D Physical exam Onychomycosis Ovarian cyst Seasonal allergic rhinitis due to pollen Pure hypercholesterolemia Surgical History Hx of tonsillectomy Family History Father Diabetes Mother Breast cancer Maternal Aunt Breast cancer Social History Housing: House Alcohol intake: never Patient Tobacco Use Status: Never used Tobacco e-Cigarette/Vaping Use: Never Used Second Hand Smoke Exposure: No service: No Current occupational status: employed Current occupational exposures/hazards: No Sexual orientation: Straight/Heterosexual Gender identity: Female Cognitive needs: No Hearing needs: No Vision needs: Yes Female Reproductive History Menstrual Age of Menarche: 11 Review of Systems Const Denies fatigue, Denies fever(s), Denies night sweats, Denies poor appetite and Denies weight loss ENT Reports Normal hearing present, Denies dental pain, Denies dysphagia, Denies hearing loss, Denies mouth pain, Denies odynophagia, Denies throat swelling, Denies tongue swelling and Reports other (Dentition adequate) Card Reports no additional complaints Resp Reports no additional complaints GI Details: Denies abdominal pain, Denies melena, Denies bloating, Denies hematochezia, Denies constipation, Denies GI cramping, Denies dysphagia, Denies excessive flatus, Denies early satiety, Denies heartburn, Denies diarrhea, Denies nausea, Denies odynophagia, Denies vomiting and Denies hematemesis Skin/Breast Denies pruritus, Denies lesions, Denies rash and Denies jaundice Neuro Reports Normal hearing present and Denies Abnormal speech present Endo Denies fatigue Aller/Immun Denies throat swelling and Denies tongue swelling Physical Exam Vital Signs: Last Vital Signs Pulse 101 H 06/23/25 10:42 BP 140/78 H 06/23/25 10:42 BMI result Body Mass Index 28.8 Const General: cooperative, no acute distress, well developed and well groomed Nutritional Appearance: well nourished and overweight Orientation/consciousness: oriented to person, oriented to place and oriented to time Limitations: No language barrier HEENT Head: Yes normocephalic and Yes atraumatic Eyes General: appearance normal, both eyes and all related structures Pupils: Equal, round and reactive pupils present Neck Neck: Yes normal visual inspection and Yes no lymphadenopathy Thyroid: Thyroid normal Resp Effort & Inspection: normal respiratory effort and able to speak in complete sentences Auscultation: clear to auscultation bilaterally Cardio Rate: regular rate Rhythm: regular rhythm Heart sounds: Normal, physiologic split S2 sound present Peripheral pulses: radial pulses present and posterior tibial pulses present GI Inspection: No distended, No Abdominal panniculus present and Yes obesity Palpation (GI): Soft to palpation, nontender, no guarding, not rigid and No hepatosplenomegaly present Percussion: Yes normal to percussion Auscultation: normal bowel sounds Rectal Exam - Female: deferred Skin General skin exam: no rashes or lesions noted, turgor normal, skin not dry, no jaundice, No spider nevi and no striae Rashes: no rashes Nails: normal Neuro General: oriented to person, oriented to place and oriented to time Cranial nerves: Yes Equal, round and reactive pupils present and Yes Normal hearing present Speech: No Abnormal speech present Extrem General: Yes normal to inspection, No clubbing, No cyanosis and No edema Psych Appearance: grossly normal and well kempt Mental Status: mental status grossly normal Speech and movement: Normal speech and movement present Affect: normal affect Attitude: cooperative Thought process: Normal thought process present and not confabulating Thought content: Normal thought content present Insight: Good insight present (Psych) Judgement: Good judgement present (Psych) Assessment & Plan Assessment & Plan (1) Pre-op examination: Code(s): Z01.818 - Encounter for other preprocedural examination Category: Medical Plan 1st colonoscopy: Yes Bowel or upper GI problems: No Cardiac or respiratory problems: Asthma is well controlled Anesthesia or sedation problems: Naive Family history of colon cancer or polyps:No Orders: Orders Comprehensive Met. Panel Today Z01.818 - Encounter for other preprocedural examination Complete Blood Count Auto Diff Today Z01.818 - Encounter for other preprocedural examination Referrals GI Procedure Notification Z01.818 - Encounter for other preprocedural examination Medications: New sodium,potassium,mag sulfates 17.5-3.13-1.6 gram (Suprep Bowel Prep Kit) 480 mL orally; FOR COLONOSCOPY PREP 354 mL 0RF Coding Level of Care Code New Pt Level 3 (18351) Diagnoses Pre-op examination Z01.818
--- OUTSIDE RECORDS SUMMARY | 2025-06-23 13:37 | XMS_ITS | Clinical Summary ---
Author Organization [facility] Address [address] [place] [address] Phone Care Team Providers Care Medical Service Technician Name Role Phone Alis Plascencia MD Primary Care Provider [phone] Allergies No known active allergies Medications No known medications Family History Medical History Relation Name Comments Breast cancer Mother Breast cancer Mother's Sister 1 Breast cancer Mother's Sister 2 Relation Name Status Comments Mother Mother's Sister 1 Alive Mother's Sister 2 Alive Social History Tobacco Use Types Packs/Day Years Used Date Smoking Tobacco: Never Assessed Comments No Sex and Gender Information Value Date Recorded Sex Assigned at Female 06/15/2025 2:17 PM EST Legal Sex Female 8:57 PM EST Gender [...] Care Team (Late st Contact Info) Description 07/06/2025 7:15 AM EST Appointment [facility] [address] [place] [address] 08/15/2025 8:30 AM EST Office Visit Orthopedic Surgery - [place] [address] [address] Jeovanny Reilly, DPMaverick [address] [address] Health Maintenance Due Date Last Done Comments Colorectal Cancer Screening: Colonoscopy 1968 Hepatitis B Vaccines (1 of 3 - 19+ 3-dose series) 1987 Cervical Cancer Screening: Pap Smear 1989 Pneumococcal Vaccine: 50+ Years (2 of 2 - PCV) 2018 12/02/2013 HIV Screening 08/01/2023 Hepatitis C Screening 08/01/2023 Social Influencers of Health Screening 08/01/2023 Depression Screening 07/07/2024 COVID-19 Vaccine ( season) 2025 05/02/2023, 06/07/2021, 11/03/2020, Additional history exists Influenza Vaccine (#1) 2025 , 04/18/2010, 05/15/2007, Additional history exists Breast Cancer Screening 07/05/2026 07/05/2024, 07/10 DTaP,Tdap,and Td Vaccines (3 - Td or Tdap) 09/25/2026 09/25/2016, 04/18/2011 RSV Immunization Adult Patients (1 - 1-dose 75+ series) 2043 Zoster Vaccines Completed 02/08/2022, 11/23/2021 HIB Vaccines [...] for biopsy. PQRI CPT II 3342F Code 56822, 78620 PQRI 225 CPT II 7025F TISSUE DENSITY: The breasts are heterogeneously dense, which may obscure small masses. (BI-RADS category C) IMPRESSION: Benign. BI-RADS CATEGORY: 2 - BENIGN RECOMMENDATION: Screening bilateral mammogram is recommended in 1 year. Mammo Location: [facility], [address] [place] [address] -------- FINAL REPORT -------- Dictated By: Johnny Atkinson Dictated Date: 07/05/2024 08:53 ET Assigned Physician: Johnny Atkinson Reviewed and Electronically Signed By: Johnny Atkinson Signed Date: 07/05/2024 09:01 ET Workstation ID: [id number] Transcribed By: Self Edit Transcribed Date: 07/05/2024 08:53 ET Narrative 07/05/2024 9:01 AM EST CLINICAL: The patient is a 54 years Female presenting for routine screening mammography. COMPARISON: Most recently 06/25/2023 and most remotely 06/28/2021. TECHNIQUE: Full-field digital mammography of the breasts bilaterally consisting of tomosynthesis in MLO and CC projection is performed in the [employer] 2000-D unit. Computer aided detection utilizing the [...] MLO and CC projection is performed in the[employer] 2000-D unit. Computer aided detection utilizing the [employer] was utilized. FINDINGS: The breasts are again [...] for biopsy. PQRI CPT II 3342F Code 30197, 62656 PQRI 225 CPT II 7025F TISSUE DENSITY: The breasts are heterogeneously dense, which may obscuresmall masses. (BI-RADS category C) IMPRESSION: Benign. BI-RADS CATEGORY: 2 - BENIGN RECOMMENDATION: Screening bilateral mammogram is recommended in 1 year. Mammo Location: [facility], [address] [place] [id number] -------- FINAL REPORT -------- Dictated By: Johnny Atkinson Dictated Date: 07/05/2024 08:53 ET Assigned Physician: Johnny Atkinson Reviewed and Electronically Signed By: Johnny Atkinson Signed Date: 07/05/2024 09:01 ET Workstation ID: [id number] Transcribed By: Self Edit Transcribed Date: 07/05/2024 08:53 ET us Self Referral Sppl IMG BI PROCEDURES Final Resul t from Last 3 Months or Most Recently Relevant to Health Maintenance Insurance [facility] PLAN Care Teams Medical Service Technician Relationship Specialty Start Date End Date Alis Plascencia MD [address] [facility] , [address] [facility] D/B/A: [facility] BRETT Smith PCP - General Internal Medicine 07/05/24
== END 2025-06-23 11:08 | disposition home or self-care (01) ==
LOC: HO.HGI 10:40
PROVIDERS: PCP Internal Medicine; Visit Provider Nurse Practitioner
DX: Z01.818 Encounter for other preprocedural examination (principal); Z12.11 Encounter for screening for malignant neoplasm of colon
CPT/HCPCS: 99203

== ENCOUNTER 2025-06-23 10:39 | Outpatient (REF) | payer OTHER, SELFPAY ==
[2025-06-23 11:34] LABS: MANUAL DIFF FLAG NO
[2025-06-23 12:09] LABS: Hematocrit 40.9 % (37.0-47.0); Hemoglobin 13.4 g/dl (12.0-16.0); Imm Gran Abs Auto 0.05 X10*3/uL (0.00-0.03); Imm Gran Pct Auto 0.4 % (0.0-0.4); Lymphocytes Absolute Auto 3.4 X10*3/uL (1.2-4.9); Mean Corpuscular HGB Conc 32.8 g/dl (31.0-35.0); Mean Corpuscular Hemoglobin 29.6 pg (27.0-33.0); Mean Corpuscular Volume 90.3 fL (80.0-98.0); NRBC Abs Auto 0.000 X10*3/uL (0.0-0.012); NRBC Pct Auto 0.0 /100WBC (0.0-0.2); Platelet Count 338 X10*3/uL (160-400); Red Blood Count 4.53 X10*6/uL (4.20-5.50); White Blood Count 12.8 X10*3/uL (4.8-10.8)
[2025-06-23 13:32] LABS: Alanine Aminotransferase 24 U/L (0-31); Albumin Level 4.1 g/dL (3.5-5.0); Alkaline Phosphatase 109 U/L (39-117); Anion Gap 13 (12-20); Aspartate Amino Transferase 24 U/L (5-31); Blood Urea Nitrogen 13 mg/dL (9-16); Calcium 9.4 mg/dL (8.4-10.2); Carbon Dioxide 27 mmol/L (22-29); Chloride 105 mmol/L (96-108); Estimated Glomerular Filt Rate > 60; Potassium 4.0 mmol/L (3.3-5.1); Sodium 141 mmol/L (135-145); Total Protein 7.2 g/dL (6.5-8.0)
== END 2025-06-23 10:40 | disposition home or self-care (01) ==
LOC: HO.LAB 10:39
PROVIDERS: PCP Internal Medicine; Visit Provider Nurse Practitioner
DX: Z01.818 Encounter for other preprocedural examination (principal)
CPT/HCPCS: 36415; 80053; 85025

== ENCOUNTER 2025-06-27 08:02 | Outpatient (AMB) | payer OTHER, SELFPAY ==
--- OUTSIDE RECORDS SUMMARY | 2025-06-27 08:05 | XMS_ITS | Clinical Summary ---
Author Organization [facility] Address [address] [place] [address] Phone Care Team Providers Care Parking Garage Manager Name Role Phone Alis Plascencia MD Primary Care Provider [phone] Allergies No known active allergies Medications No [...] AM EST Appointment [facility] [address] [place] [address] 08/15/2025 8:30 AM EST Office Visit Orthopedic Surgery - [place] [address] [address] Jeovanny Reilly, DPMaverick [address] [address] Health Maintenance Due Date Last Done Comments [...] for biopsy. PQRI CPT II 3342F Code 56568, 53045 PQRI 225 CPT II 7025F TISSUE DENSITY: The breasts are heterogeneously dense, which may obscure small masses. (BI-RADS category C) IMPRESSION: Benign. BI-RADS CATEGORY: 2 - BENIGN RECOMMENDATION: Screening bilateral mammogram is recommended in 1 year. Mammo Location: [facility], [facility], [address] [place] [address] -------- FINAL REPORT -------- Dictated By: Johnny Atkinson Dictated Date: 07/05/2024 08:53 ET Assigned Physician: Johnny Atkinson Reviewed and Electronically Signed By: Johnny Atkinson Signed Date: 07/05/2024 09:01 ET Workstation ID: [id number] Transcribed By: Self Edit Transcribed Date: 07/05/2024 08:53 ET Narrative 07/05/2024 9:01 AM EST CLINICAL: The patient is a 54 years Female presenting for routine screening mammography. COMPARISON: Most recently 06/25/2023 and most remotely 06/28/2021. TECHNIQUE: Full-field digital mammography of the breasts bilaterally consisting of tomosynthesis in MLO and CC projection is performed in the [employer] 2000-D unit. Computer aided detection utilizing the [...] MLO and CC projection is performed in the[employer]he 2000-D unit. Computer aided detection utilizing the [employer] was utilized. FINDINGS: The breasts are again [...] for biopsy. PQRI CPT II 3342F Code 38643, 37343 PQRI 225 CPT II 7025F TISSUE DENSITY: The breasts are heterogeneously dense, which may obscuresmall masses. (BI-RADS category C) IMPRESSION: Benign. BI-RADS CATEGORY: 2 - BENIGN RECOMMENDATION: Screening bilateral mammogram is recommended in 1 year. Mammo Location: [facility], [facility], [address] [place] [id number] -------- FINAL REPORT -------- Dictated By: Johnny Atkinson Dictated Date: 07/05/2024 08:53 ET Assigned Physician: Johnny Atkinson Reviewed and Electronically Signed By: Johnny Atkinson Signed Date: 07/05/2024 09:01 ET Workstation ID: [id number] Transcribed By: Self Edit Transcribed Date: 07/05/2024 08:53 ET us Self Referral Sppl IMG BI PROCEDURES Final Resul t from Last 3 Months or Most Recently Relevant to Health Maintenance Insurance [facility] PL[facility] Care Teams Parking Garage Manager Relationship Specialty Start Date End Date Alis Plascencia MD [address] [facility] , [address] [facility] D/B/A: [facility] BRETT Smith PCP - General Internal Medicine 07/05/24
[2025-06-27 08:07] VITALS: BP 122/88; PULSE 88; TEMP 36.5; O2SAT 99; BMI 28.7
--- NOTE | 2025-06-27 08:07 | MHC.OFFWIV ---
Intake Vital Signs 06/27/25 08:07 Height 5 ft 2 in Weight 157 lb BMI 28.7 BP 122/88 Blood Pressure Location Rt brachial Position Sitting Pulse 88 Pulse Source Pulse Oximeter Temp 97.7 F Temp Source Oral Pulse Oximetry (%) 99 Oxygen Delivery Method Room Air Intake Visit Reasons: EP coughing asthma chest tightness diarrhea Intake Note: Patient presents c/o cough, chest tightness, SOB, diarrhea since last night. Patient Tobacco Use Status: Never used Tobacco Allergies mold (MOLD) Allergy (Intermediate, Verified 06/27/25 08:09) ITCHING pollen extracts (POLLEN) Allergy (Intermediate, Verified 06/27/25 08:09) ITCHING Sulfa (Sulfonamide Antibiotics) (SULFA (SULFONAMIDE ANTIBIOTICS)) Allergy (Intermediate, Verified 06/27/25 08:09) RASH DUST Allergy (Intermediate, Uncoded 06/27/25 08:09) ITCHING HPI HPI Comments History of Present Illness Details History - The patient is a 54-year-old female who presented with an asthma exacerbation that began last night. - She reports associated symptoms of cough, chest tightness, and diarrhea that started this morning. - She has a history of asthma for which she uses an albuterol inhaler. - She has a dry cough with no sputum production. - The patient denies any fever. - She also reports feeling phlegm in her chest. - She states she was very sick about three to four weeks prior to this visit with a sore throat. - She has no sick contacts. - She denies abd pain, nausea, or vomiting. Physical Exam General: Cooperative, healthy appearing, comfortable and no acute distress Orientation/consciousness: Patient oriented x3 Limitations: No limitations Head: Normal to inspection Ears: Hearing grossly normal bilaterally, external ears normal and TM's normal bilaterally Nose: Normal external nose present, normal nares present, and no nasal discharge present. Face and sinus: Sinuses nontender to palpation. Mouth: Normal oral and palatal mucosa present and moist mucous membranes noted. Throat: Tonsils normal. Uvula is midline. Posterior oropharynx with erythema and no exudates. Eyes: Appearance normal, both eyes and all related structures Neck: Normal visual inspection, full ROM. No lymphadenopathy noted. Respiratory: Clear to auscultation bilaterally. Normal respiratory effort, able to speak in complete sentences. No respiratory distress, not tachypneic, no tripod positioning and no use of accessory muscles. Cardiovascular: Regular rate and rhythm. Normal S1 and S2 Skin: No rashes or lesions noted Patient was informed and verbally consented to the use of an ambient scribe for clinic note documentation during this visit [facility] Medical History Hypovitaminosis D Physical exam Onychomycosis Ovarian cyst Seasonal allergic rhinitis due to pollen Pure hypercholesterolemia Surgical History Hx of tonsillectomy Family History Father Diabetes Mother Breast cancer Maternal Aunt Breast cancer Social History Housing: House Alcohol intake: never Patient Tobacco Use Status: Never used Tobacco e-Cigarette/Vaping Use: Never Used Second Hand Smoke Exposure: No service: No Current occupational status: employed Current occupational exposures/hazards: No Sexual orientation: Straight/Heterosexual Gender identity: Female Cognitive needs: No Hearing needs: No Vision needs: Yes Female Reproductive History Menstrual Age of Menarche: 11 Review of Systems Const All systems reviewed & are unremarkable except as noted in HPI and below Physical Exam Vital Signs: Last Vital Signs Temp 97.7 F 06/27/25 08:07 Pulse 88 06/27/25 08:07 BP 122/88 06/27/25 08:07 Pulse Ox 99 06/27/25 08:07 Oxygen Delivery Method Room Air 06/27/25 08:07 BMI result Body Mass Index 28.7 Assessment & Plan Assessment & Plan (1) Cough: Code(s): R05.9 - Cough, unspecified Qualifiers: Cough type: acute Qualified Code(s): R05.1 - Acute cough Plan Most likely Asthma Exacerbation vs covid vs flu vs RSV vs URI plan - A 5-day course of prednisone and cough medicine were prescribed. - The patient was instructed to continue using her inhaler. - Testing for COVID-19, influenza, and RSV will be performed, with results to be communicated later today. - A work excuse note was provided for today. - The patient is cleared to return to work tomorrow, provided she remains afebrile. Orders: Orders SARS-CoV2/FLU/RSV Today R09.89 - Other specified symptoms and signs involving the circulatory and respiratory systems Medications: New benzonatate 100 mg PO bid-tid PRN 21 caps 0RF Cough 7 days prednisone 40 mg (2 x 20 mg) PO DAILY 10 tabs 0RF 5 days Coding Level of Care Code Est Pt Level 3 (96684) Diagnoses Acute cough R05.1 Cough type: acute
== END 2025-06-27 08:22 | disposition home or self-care (01) ==
PROVIDERS: PCP Internal Medicine; Visit Provider Physician Assistant Medical
DX: R05.1 Acute cough (principal)

== ENCOUNTER 2025-06-27 08:02 | Outpatient (REF) | payer OTHER, SELFPAY ==
[2025-06-27 11:23] LABS: Resp Syncy Virus RNA Qual PCR NEGATIVE (Negative); SARS COV2 PCR INHOUSE NEGATIVE (Negative)
== END 2025-06-27 08:03 | disposition home or self-care (01) ==
LOC: HO.LAB 08:02
PROVIDERS: Physician Assistant Medical; PCP Internal Medicine
DX: R05.1 Acute cough (principal)
CPT/HCPCS: 87637; 99212